=== PATIENT | male | born 1965 | race Caucasian/White ===

== ENCOUNTER 2019-04-08 08:42 | Outpatient (CLI) | payer MEDICARE, BC, SELFPAY ==
[2019-04-08 09:33] LABS: Basophils % 0.7 %; Eosinophils # 0.1 10^3/uL (0.0-0.8); Eosinophils % 1.1 %; Hematocrit 48.3 % (42.0-52.0); Hemoglobin 15.2 g/dL (11.7-16.6); Lymphocytes # 1.6 10^3/uL (0.8-4.8); Lymphocytes % 26.2 %; Mean Corpuscular HGB Conc 31.5 g/dL (30.0-36.0); Mean Corpuscular Hemoglobin 26.7 pg (28.0-34.0); Mean Corpuscular Volume 84.9 fL (80-94); Mean Platelet Volume 9.5 fL (7.4-10.4); Monocytes # 0.5 10^3/uL (0.2-0.9); Monocytes % 7.7 %; Neutrophils # 3.9 10^3/uL (1.8-7.7); Neutrophils % 64.1 %; Nucleated Red Blood Cells % 0 %; Platelet Count 227 10^3/cmm (130-400); Red Blood Count 5.69 10^6/uL (4.1-5.3); Red Cell Distribution Width 12.6 % (12.1-15.1); White Blood Count 6.1 10^3/uL (4.0-10.0)
== END 2019-04-08 08:43 | disposition home or self-care (01) ==
LOC: ONCMED 08:49
PROVIDERS: Family Provider Electrodiagnostic Medicine; Visit Provider Internal Medicine Medical Oncology
DX: D75.1 Secondary polycythemia (principal)
CPT/HCPCS: 36415; 36591; 85025; 99195; 99211

== ENCOUNTER 2019-05-09 08:27 | Outpatient (CLI) | payer MEDICARE, BC, SELFPAY ==
[2019-05-09 09:00] LABS: Basophils % 0.8 %; Eosinophils # 0.1 10^3/uL (0.0-0.8); Eosinophils % 1.3 %; Hematocrit 46.4 % (42.0-52.0); Hemoglobin 14.3 g/dL (11.7-16.6); Lymphocytes # 1.5 10^3/uL (0.8-4.8); Lymphocytes % 28.1 %; Mean Corpuscular HGB Conc 30.8 g/dL (30.0-36.0); Mean Corpuscular Hemoglobin 25.9 pg (28.0-34.0); Mean Corpuscular Volume 84.1 fL (80-94); Mean Platelet Volume 9.6 fL (7.4-10.4); Monocytes # 0.4 10^3/uL (0.2-0.9); Monocytes % 6.6 %; Neutrophils # 3.3 10^3/uL (1.8-7.7); Neutrophils % 62.3 %; Nucleated Red Blood Cells % 0 %; Platelet Count 233 10^3/cmm (130-400); Red Blood Count 5.52 10^6/uL (4.1-5.3); Red Cell Distribution Width 12.7 % (12.1-15.1); White Blood Count 5.3 10^3/uL (4.0-10.0)
== END 2019-05-09 08:28 | disposition home or self-care (01) ==
LOC: ONCMED 08:27
PROVIDERS: Family Provider Electrodiagnostic Medicine; PCP Electrodiagnostic Medicine; Visit Provider Internal Medicine Medical Oncology
DX: D75.1 Secondary polycythemia (principal)
CPT/HCPCS: 36415; 85025

== ENCOUNTER 2019-06-07 08:36 | Outpatient (CLI) | payer MEDICARE, BC, SELFPAY ==
[2019-06-07 09:19] LABS: Basophils % 0.3 %; Eosinophils # 0.1 10^3/uL (0.0-0.8); Eosinophils % 0.9 %; Hematocrit 49.7 % (42.0-52.0); Hemoglobin 15.2 g/dL (11.7-16.6); Lymphocytes # 1.6 10^3/uL (0.8-4.8); Lymphocytes % 25.7 %; Mean Corpuscular HGB Conc 30.6 g/dL (30.0-36.0); Mean Corpuscular Hemoglobin 24.9 pg (28.0-34.0); Mean Corpuscular Volume 81.5 fL (80-94); Mean Platelet Volume 9.8 fL (7.4-10.4); Monocytes # 0.4 10^3/uL (0.2-0.9); Monocytes % 6.4 %; Neutrophils # 4.2 10^3/uL (1.8-7.7); Neutrophils % 66.4 %; Nucleated Red Blood Cells % 0 %; Platelet Count 248 10^3/cmm (130-400); Red Cell Distribution Width 13.3 % (12.1-15.1); White Blood Count 6.4 10^3/uL (4.0-10.0)
== END 2019-06-07 08:37 | disposition home or self-care (01) ==
LOC: ONCMED 08:36
PROVIDERS: Family Provider Electrodiagnostic Medicine; PCP Electrodiagnostic Medicine; Visit Provider Internal Medicine Medical Oncology
DX: D75.1 Secondary polycythemia (principal)
CPT/HCPCS: 36415; 85025; 99195; 99211

== ENCOUNTER 2019-07-08 08:36 | Outpatient (CLI) | payer MEDICARE, BC, SELFPAY ==
[2019-07-08 09:02] LABS: Basophils % 0.5 %; Eosinophils # 0.1 10^3/uL (0.0-0.8); Eosinophils % 0.8 %; Hematocrit 47.3 % (42.0-52.0); Hemoglobin 14.5 g/dL (11.7-16.6); Lymphocytes # 1.4 10^3/uL (0.8-4.8); Lymphocytes % 23.4 %; Mean Corpuscular HGB Conc 30.7 g/dL (30.0-36.0); Mean Corpuscular Hemoglobin 25.5 pg (28.0-34.0); Mean Corpuscular Volume 83.3 fL (80-94); Mean Platelet Volume 9.3 fL (7.4-10.4); Monocytes # 0.3 10^3/uL (0.2-0.9); Neutrophils # 4.2 10^3/uL (1.8-7.7); Neutrophils % 70.1 %; Nucleated Red Blood Cells % 0 %; Platelet Count 229 10^3/cmm (130-400); Red Blood Count 5.68 10^6/uL (4.1-5.3); Red Cell Distribution Width 13.7 % (12.1-15.1)
== END 2019-07-08 08:37 | disposition home or self-care (01) ==
LOC: ONCMED 08:36
PROVIDERS: Family Provider Electrodiagnostic Medicine; PCP Electrodiagnostic Medicine; Visit Provider Internal Medicine Medical Oncology
DX: D75.1 Secondary polycythemia (principal)
CPT/HCPCS: 36415; 85025

== ENCOUNTER 2019-07-11 14:30 | Outpatient (CLI) | payer MEDICARE, BC, SELFPAY | END 2019-07-11 14:31 | disposition home or self-care (01) | LOC: ONCMED 14:30 | PROVIDERS: Family Provider Electrodiagnostic Medicine; PCP Electrodiagnostic Medicine; Visit Provider Internal Medicine Medical Oncology | DX: D75.1 Secondary polycythemia (principal) | CPT/HCPCS: 99195; 99211 ==

== ENCOUNTER 2019-08-08 08:21 | Outpatient (CLI) | payer MEDICARE, BC, SELFPAY ==
[2019-08-08 08:48] LABS: Basophils % 0.7 %; Eosinophils # 0.1 10^3/uL (0.0-0.8); Eosinophils % 2.4 %; Hemoglobin 13.5 g/dL (11.7-16.6); Lymphocytes # 1.7 10^3/uL (0.8-4.8); Lymphocytes % 28.7 %; Mean Corpuscular Hemoglobin 24.8 pg (28.0-34.0); Mean Corpuscular Volume 82.7 fL (80-94); Mean Platelet Volume 9.5 fL (7.4-10.4); Monocytes # 0.4 10^3/uL (0.2-0.9); Monocytes % 6.6 %; Neutrophils # 3.6 10^3/uL (1.8-7.7); Neutrophils % 61.4 %; Nucleated Red Blood Cells % 0 %; Platelet Count 226 10^3/cmm (130-400); Red Blood Count 5.44 10^6/uL (4.1-5.3); Red Cell Distribution Width 13.5 % (12.1-15.1); White Blood Count 5.9 10^3/uL (4.0-10.0)
== END 2019-08-08 08:22 | disposition home or self-care (01) ==
LOC: ONCMED 08:22
PROVIDERS: Family Provider Electrodiagnostic Medicine; PCP Electrodiagnostic Medicine; Visit Provider Internal Medicine Medical Oncology
DX: D75.1 Secondary polycythemia (principal)
CPT/HCPCS: 36415; 85025

== ENCOUNTER 2019-09-08 09:22 | Outpatient (CLI) | payer MEDICARE, BC, SELFPAY ==
[2019-09-08 09:56] LABS: Basophils % 0.7 %; Eosinophils % 0.5 %; Hematocrit 48.4 % (42.0-52.0); Hemoglobin 14.7 g/dL (11.7-16.6); Lymphocytes # 1.7 10^3/uL (0.8-4.8); Lymphocytes % 31.5 %; Mean Corpuscular HGB Conc 30.4 g/dL (30.0-36.0); Mean Corpuscular Hemoglobin 25.2 pg (28.0-34.0); Mean Corpuscular Volume 82.9 fL (80-94); Mean Platelet Volume 9.6 fL (7.4-10.4); Monocytes # 0.4 10^3/uL (0.2-0.9); Monocytes % 7.1 %; Neutrophils # 3.3 10^3/uL (1.8-7.7); Neutrophils % 59.8 %; Nucleated Red Blood Cells % 0 %; Platelet Count 266 10^3/cmm (130-400); Red Blood Count 5.84 10^6/uL (4.1-5.3); Red Cell Distribution Width 13.9 % (12.1-15.1); White Blood Count 5.5 10^3/uL (4.0-10.0)
[2019-09-08 10:11] LABS: Alanine Aminotransferase 19 U/L (0-41); Albumin Level 4.5 g/dL (3.5-5.2); Alkaline Phosphatase 87 IU/L (40-130); Anion Gap 13.2 (5-19); Aspartate Amino Transferase 19 U/L (0-40); Blood Urea Nitrogen 14 mg/dL (6-20); Calcium 9.2 mg/dL (8.5-10.5); Carbon Dioxide 25 mmol/L (22-29); Chloride 106 mmol/L (98-107); Globulin 2.2 g/dL (1.3-4.6); Glomerular Filtration Rate 87.9 mL/min (90-130); Glucose 111 mg/dL (65-115); Osmolality Calculated 287 mOsm/kg (285-295); Potassium 4.2 mmol/L (3.5-5.1); Sodium 140 mmol/L (136-145); Total Bilirubin 0.3 mg/dL (0.15-1.2); Total Protein 6.7 g/dL (6.6-8.7)
[2019-09-08 12:59] LABS: 25 Hydroxy Vitamin D 69 ng/mL (30-100)
[2019-09-08 14:32] LABS: Phosphorus 2.3 mg/dL (2.5-4.5)
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
== END 2019-09-08 09:23 | disposition home or self-care (01) ==
LOC: ONCMED 09:25
PROVIDERS: PCP Electrodiagnostic Medicine; Visit Provider Internal Medicine Medical Oncology
DX: D45 Polycythemia vera (principal); E83.32 Hereditary vitamin D-dependent rickets (type 1) (type 2); D51.9 Vitamin B12 deficiency anemia, unspecified; E51.9 Thiamine deficiency, unspecified; E78.5 Hyperlipidemia, unspecified; K90.9 Intestinal malabsorption, unspecified; F07.81 Postconcussional syndrome; G62.2 Polyneuropathy due to other toxic agents; G89.4 Chronic pain syndrome; G47.31 Primary central sleep apnea; R00.0 Tachycardia, unspecified; E23.7 Disorder of pituitary gland, unspecified; E29.1 Testicular hypofunction; R55 Syncope and collapse; N40.0 Benign prostatic hyperplasia without lower urinary tract symptoms; N20.0 Calculus of kidney; F32.9 Major depressive disorder, single episode, unspecified
CPT/HCPCS: 36415; 80053; 82306; 84100; 85025; 99195; 99214

== ENCOUNTER 2019-09-20 15:11 | Outpatient (CLI) | payer MEDICARE, BC, SELFPAY ==
--- NOTE | 2019-09-20 15:27 | XR_ITS ---
NOTE: Report was unsigned for reason: Order was edited. Original Signature date and time was: 09/20/19 1604 WS: [id number] Bilateral hips, AP and frog leg views, 09/20/2019 Clinical Data: BILATERAL PRIMARY OSTEOARTHRITIS OF HIP Comparison: None. Findings: Right hip: No fractures or dislocations are seen. There is slight sclerosis of the lateral acetabulum. A small acetabular lip is noted. No narrowing is noted. There is no cyst formation or erosion. The adjacent right SI joint and pubic symphysis are unremarkable. The soft tissues are normal. Left hip: No fractures or dislocations are seen. The joint space is normal without narrowing, erosion or cyst formation. The adjacent left SI joint and pubic symphysis are normal. There is minimal cyst formation at the left acetabular lip. Soft tissues are unremarkable. MTDD XR/XR hip BI 2V wo/w pel [id number] Impression: 1. Mild osteoarthritis of the right hip joint. 2. Mild osteoarthritis of the left hip..
== END 2019-09-20 15:12 | disposition home or self-care (01) ==
PROVIDERS: Family Provider Electrodiagnostic Medicine; PCP Electrodiagnostic Medicine; Visit Provider Physician Assistant
DX: M16.0 Bilateral primary osteoarthritis of hip (principal)
CPT/HCPCS: 73521; 73522

== ENCOUNTER 2019-10-10 08:43 | Outpatient (CLI) | payer MEDICARE, BC, SELFPAY ==
[2019-10-10 09:08] LABS: Basophils % 0.5 %; Eosinophils % 0.2 %; Hematocrit 47.7 % (42.0-52.0); Hemoglobin 14.5 g/dL (11.7-16.6); Lymphocytes # 1.5 10^3/uL (0.8-4.8); Lymphocytes % 24.5 %; Mean Corpuscular HGB Conc 30.4 g/dL (30.0-36.0); Mean Corpuscular Hemoglobin 25.5 pg (28.0-34.0); Mean Platelet Volume 9.5 fL (7.4-10.4); Monocytes # 0.4 10^3/uL (0.2-0.9); Monocytes % 7.3 %; Neutrophils # 4.1 10^3/uL (1.8-7.7); Neutrophils % 67.2 %; Nucleated Red Blood Cells % 0 %; Platelet Count 230 10^3/cmm (130-400); Red Blood Count 5.68 10^6/uL (4.1-5.3); Red Cell Distribution Width 13.9 % (12.1-15.1)
== END 2019-10-10 08:44 | disposition home or self-care (01) ==
LOC: ONCMED 08:46
PROVIDERS: PCP Electrodiagnostic Medicine; Visit Provider Internal Medicine Medical Oncology
DX: D45 Polycythemia vera (principal); D51.9 Vitamin B12 deficiency anemia, unspecified; E55.9 Vitamin D deficiency, unspecified; N40.0 Benign prostatic hyperplasia without lower urinary tract symptoms; G47.31 Primary central sleep apnea; F09 Unspecified mental disorder due to known physiological condition; F32.9 Major depressive disorder, single episode, unspecified; G04.90 Encephalitis and encephalomyelitis, unspecified; E78.5 Hyperlipidemia, unspecified; E23.0 Hypopituitarism; R00.0 Tachycardia, unspecified; K90.9 Intestinal malabsorption, unspecified
CPT/HCPCS: 36415; 85025; 99195

== ENCOUNTER 2019-11-10 08:32 | Outpatient (CLI) | payer MEDICARE, BC, SELFPAY ==
[2019-11-10 09:34] LABS: Basophils % 0.7 %; Eosinophils % 0.7 %; Hematocrit 46.5 % (42.0-52.0); Hemoglobin 13.8 g/dL (11.7-16.6); Lymphocytes # 1.6 10^3/uL (0.8-4.8); Lymphocytes % 27.2 %; Mean Corpuscular HGB Conc 29.7 g/dL (30.0-36.0); Mean Corpuscular Hemoglobin 24.9 pg (28.0-34.0); Mean Corpuscular Volume 83.8 fL (80-94); Mean Platelet Volume 9.6 fL (7.4-10.4); Monocytes # 0.3 10^3/uL (0.2-0.9); Monocytes % 5.6 %; Neutrophils # 3.95 10^3/uL (1.8-7.7); Neutrophils % 65.3 %; Nucleated Red Blood Cells % 0 %; Platelet Count 253 10^3/cmm (130-400); Red Blood Count 5.55 10^6/uL (4.1-5.3); Red Cell Distribution Width 13.7 % (12.1-15.1)
== END 2019-11-10 08:33 | disposition home or self-care (01) ==
LOC: ONCMED 08:35
PROVIDERS: PCP Electrodiagnostic Medicine; Visit Provider Internal Medicine Medical Oncology
DX: E83.119 Hemochromatosis, unspecified (principal)
CPT/HCPCS: 85025; 99195

== ENCOUNTER 2019-12-09 06:15 | Outpatient (CLI) | payer MEDICARE, BC, SELFPAY ==
[2019-12-09 09:12] LABS: Basophils % 0.7 %; Eosinophils # 0.1 10^3/uL (0.0-0.8); Eosinophils % 1.3 %; Hematocrit 49.2 % (42.0-52.0); Hemoglobin 14.6 g/dL (11.7-16.6); Lymphocytes # 1.4 10^3/uL (0.8-4.8); Lymphocytes % 26.4 %; Mean Corpuscular HGB Conc 29.7 g/dL (30.0-36.0); Mean Corpuscular Hemoglobin 24.6 pg (28.0-34.0); Mean Corpuscular Volume 82.8 fL (80-94); Mean Platelet Volume 9.8 fL (7.4-10.4); Monocytes # 0.4 10^3/uL (0.2-0.9); Monocytes % 7.8 %; Neutrophils # 3.44 10^3/uL (1.8-7.7); Neutrophils % 63.6 %; Nucleated Red Blood Cells % 0 %; Platelet Count 230 10^3/cmm (130-400); Red Blood Count 5.94 10^6/uL (4.1-5.3); Red Cell Distribution Width 13.8 % (12.1-15.1); White Blood Count 5.4 10^3/uL (4.0-10.0)
== END 2019-12-09 06:16 | disposition home or self-care (01) ==
LOC: ONCMED 06:18
PROVIDERS: PCP Electrodiagnostic Medicine; Visit Provider Internal Medicine Medical Oncology
DX: D75.1 Secondary polycythemia (principal); E55.9 Vitamin D deficiency, unspecified
CPT/HCPCS: 36415; 85025; 99195

== ENCOUNTER 2020-01-09 08:31 | Outpatient (CLI) | payer MEDICARE, BC, SELFPAY ==
[2020-01-09 09:13] LABS: Basophils % 0.6 %; Eosinophils # 0.1 10^3/uL (0.0-0.8); Eosinophils % 1.2 %; Hemoglobin 15.6 g/dL (11.7-16.6); Lymphocytes # 1.6 10^3/uL (0.8-4.8); Lymphocytes % 24.2 %; Mean Corpuscular Hemoglobin 25.4 pg (28.0-34.0); Mean Corpuscular Volume 84.7 fL (80-94); Mean Platelet Volume 9.7 fL (7.4-10.4); Monocytes # 0.5 10^3/uL (0.2-0.9); Monocytes % 7.6 %; Neutrophils # 4.41 10^3/uL (1.8-7.7); Nucleated Red Blood Cells % 0 %; Platelet Count 232 10^3/cmm (130-400); Red Blood Count 6.14 10^6/uL (4.1-5.3); Red Cell Distribution Width 14.6 % (12.1-15.1); White Blood Count 6.7 10^3/uL (4.0-10.0)
== END 2020-01-09 08:32 | disposition home or self-care (01) ==
LOC: ONCMED 08:33
PROVIDERS: PCP Electrodiagnostic Medicine; Visit Provider Internal Medicine Medical Oncology
DX: D75.1 Secondary polycythemia (principal)
CPT/HCPCS: 36415; 85025; 99195

== ENCOUNTER 2020-02-09 06:01 | Outpatient (CLI) | payer MEDICARE, BC, SELFPAY ==
[2020-02-09 09:15] LABS: Basophils % 0.7 %; Eosinophils % 0.7 %; Hematocrit 49.7 % (42.0-52.0); Hemoglobin 14.6 g/dL (11.7-16.6); Lymphocytes # 1.6 10^3/uL (0.8-4.8); Lymphocytes % 27.4 %; Mean Corpuscular HGB Conc 29.4 g/dL (30.0-36.0); Mean Corpuscular Hemoglobin 24.8 pg (28.0-34.0); Mean Corpuscular Volume 84.5 fL (80-94); Mean Platelet Volume 9.4 fL (7.4-10.4); Monocytes # 0.3 10^3/uL (0.2-0.9); Monocytes % 5.6 %; Neutrophils # 3.83 10^3/uL (1.8-7.7); Neutrophils % 65.3 %; Nucleated Red Blood Cells % 0 %; Platelet Count 312 10^3/cmm (130-400); Red Blood Count 5.88 10^6/uL (4.1-5.3); Red Cell Distribution Width 13.4 % (12.1-15.1); White Blood Count 5.9 10^3/uL (4.0-10.0)
== END 2020-02-09 06:02 | disposition home or self-care (01) ==
LOC: ONCMED 06:04
PROVIDERS: PCP Electrodiagnostic Medicine; Visit Provider Internal Medicine Medical Oncology
DX: D75.1 Secondary polycythemia (principal); E83.119 Hemochromatosis, unspecified; E55.9 Vitamin D deficiency, unspecified
CPT/HCPCS: 36415; 85025; 99195

== ENCOUNTER 2020-03-12 08:54 | Outpatient (CLI) | payer MEDICARE, BC, SELFPAY ==
[2020-03-12 09:43] LABS: Basophils # 0.1 10^3/uL (0.0-0.1); Basophils % 0.6 %; Eosinophils # 0.3 10^3/uL (0.0-0.8); Hematocrit 46.5 % (42.0-52.0); Lymphocytes # 1.9 10^3/uL (0.8-4.8); Mean Corpuscular HGB Conc 30.1 g/dL (30.0-36.0); Mean Corpuscular Hemoglobin 24.5 pg (28.0-34.0); Mean Corpuscular Volume 81.4 fL (80-94); Mean Platelet Volume 9.6 fL (7.4-10.4); Monocytes # 0.6 10^3/uL (0.2-0.9); Monocytes % 6.3 %; Neutrophils # 6.66 10^3/uL (1.8-7.7); Neutrophils % 69.7 %; Nucleated Red Blood Cells % 0 %; Platelet Count 274 10^3/cmm (130-400); Red Blood Count 5.71 10^6/uL (4.1-5.3); Red Cell Distribution Width 13.9 % (12.1-15.1); White Blood Count 9.6 10^3/uL (4.0-10.0)
[2020-03-12 10:24] LABS: 25 Hydroxy Vitamin D 62 ng/mL (30-100); Alanine Aminotransferase 14 U/L (0-41); Albumin Level 3.9 g/dL (3.5-5.2); Alkaline Phosphatase 112 IU/L (40-130); Aspartate Amino Transferase 13 U/L (0-40); Blood Urea Nitrogen 14 mg/dL (6-20); Calcium 9.3 mg/dL (8.5-10.5); Carbon Dioxide 26 mmol/L (22-29); Chloride 101 mmol/L (98-107); Glomerular Filtration Rate 87.9 mL/min (90-130); Glucose 145 mg/dL (65-115); Osmolality Calculated 289 mOsm/kg (285-295); Sodium 138 mmol/L (136-145); Total Bilirubin 0.2 mg/dL (0.15-1.2); Total Protein 6.9 g/dL (6.6-8.7)
[2020-03-12 10:30] LABS: Anion Gap 14.7 (5-19); Potassium 3.7 mmol/L (3.5-5.1)
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
== END 2020-03-12 08:55 | disposition home or self-care (01) ==
LOC: ONCMED 08:56
PROVIDERS: PCP Electrodiagnostic Medicine; Visit Provider Internal Medicine Medical Oncology
DX: D75.1 Secondary polycythemia (principal); F09 Unspecified mental disorder due to known physiological condition; E78.5 Hyperlipidemia, unspecified; N40.0 Benign prostatic hyperplasia without lower urinary tract symptoms; F32.9 Major depressive disorder, single episode, unspecified; G47.31 Primary central sleep apnea; E29.1 Testicular hypofunction; E53.8 Deficiency of other specified B group vitamins; E55.9 Vitamin D deficiency, unspecified; E51.9 Thiamine deficiency, unspecified
CPT/HCPCS: 36415; 80053; 82306; 85025; 99214

== ENCOUNTER 2020-04-12 08:36 | Outpatient (CLI) | payer MEDICARE, BC, SELFPAY ==
[2020-04-12 09:10] LABS: Basophils % 0.6 %; Eosinophils # 0.1 10^3/uL (0.0-0.8); Eosinophils % 1.6 %; Hematocrit 46.5 % (42.0-52.0); Hemoglobin 13.6 g/dL (11.7-16.6); Lymphocytes # 1.8 10^3/uL (0.8-4.8); Lymphocytes % 28.8 %; Mean Corpuscular HGB Conc 29.2 g/dL (30.0-36.0); Mean Corpuscular Hemoglobin 23.9 pg (28.0-34.0); Mean Corpuscular Volume 81.7 fL (80-94); Mean Platelet Volume 9.2 fL (7.4-10.4); Monocytes # 0.5 10^3/uL (0.2-0.9); Monocytes % 8.6 %; Neutrophils # 3.79 10^3/uL (1.8-7.7); Neutrophils % 60.2 %; Nucleated Red Blood Cells % 0 %; Platelet Count 255 10^3/cmm (130-400); Red Blood Count 5.69 10^6/uL (4.1-5.3); Red Cell Distribution Width 13.7 % (12.1-15.1); White Blood Count 6.3 10^3/uL (4.0-10.0)
== END 2020-04-12 08:37 | disposition home or self-care (01) ==
LOC: ONCMED 08:39
PROVIDERS: PCP Electrodiagnostic Medicine; Visit Provider Internal Medicine Medical Oncology
DX: D75.1 Secondary polycythemia (principal)
CPT/HCPCS: 36415; 85025; 99195

== ENCOUNTER 2020-05-14 08:27 | Outpatient (CLI) | payer MEDICARE, BC, SELFPAY ==
[2020-05-14 09:12] LABS: Basophils # 0.1 10^3/uL (0.0-0.1); Basophils % 0.7 %; Eosinophils # 0.1 10^3/uL (0.0-0.8); Eosinophils % 1.3 %; Hematocrit 47.4 % (42.0-52.0); Hemoglobin 13.9 g/dL (11.7-16.6); Lymphocytes # 1.8 10^3/uL (0.8-4.8); Lymphocytes % 26.2 %; Mean Corpuscular HGB Conc 29.3 g/dL (30.0-36.0); Mean Corpuscular Hemoglobin 24.1 pg (28.0-34.0); Mean Corpuscular Volume 82.3 fL (80-94); Mean Platelet Volume 9.7 fL (7.4-10.4); Monocytes # 0.5 10^3/uL (0.2-0.9); Monocytes % 6.4 %; Neutrophils # 4.56 10^3/uL (1.8-7.7); Neutrophils % 65.1 %; Nucleated Red Blood Cells % 0 %; Platelet Count 256 10^3/cmm (130-400); Red Blood Count 5.76 10^6/uL (4.1-5.3); Red Cell Distribution Width 14.1 % (12.1-15.1)
== END 2020-05-14 08:28 | disposition home or self-care (01) ==
PROVIDERS: PCP Electrodiagnostic Medicine; Visit Provider Internal Medicine Medical Oncology
DX: D75.1 Secondary polycythemia (principal)
CPT/HCPCS: 36415; 85025; 99195

== ENCOUNTER 2020-06-11 06:05 | Outpatient (CLI) | payer MEDICARE, BC, SELFPAY ==
[2020-06-11 09:20] LABS: Basophils # 0.1 10^3/uL (0.0-0.1); Basophils % 0.9 %; Eosinophils # 0.1 10^3/uL (0.0-0.8); Hematocrit 45.3 % (42.0-52.0); Hemoglobin 13.3 g/dL (11.7-16.6); Lymphocytes # 1.6 10^3/uL (0.8-4.8); Lymphocytes % 28.5 %; Mean Corpuscular HGB Conc 29.4 g/dL (30.0-36.0); Mean Corpuscular Hemoglobin 23.7 pg (28.0-34.0); Mean Corpuscular Volume 80.6 fL (80-94); Mean Platelet Volume 9.5 fL (7.4-10.4); Monocytes # 0.4 10^3/uL (0.2-0.9); Monocytes % 7.5 %; Neutrophils # 3.56 10^3/uL (1.8-7.7); Neutrophils % 61.9 %; Nucleated Red Blood Cells % 0 %; Platelet Count 271 10^3/cmm (130-400); Red Blood Count 5.62 10^6/uL (4.1-5.3); Red Cell Distribution Width 14.2 % (12.1-15.1); White Blood Count 5.8 10^3/uL (4.0-10.0)
== END 2020-06-11 06:06 | disposition home or self-care (01) ==
PROVIDERS: PCP Electrodiagnostic Medicine; Visit Provider Internal Medicine Medical Oncology
DX: D75.1 Secondary polycythemia (principal)
CPT/HCPCS: 85025; 99195

== ENCOUNTER 2020-07-09 08:20 | Outpatient (CLI) | payer MEDICARE, BC, SELFPAY ==
[2020-07-09 09:20] LABS: Basophils % 0.3 %; Eosinophils % 0.1 %; Hematocrit 44.5 % (42.0-52.0); Hemoglobin 12.9 g/dL (11.7-16.6); Lymphocytes # 1.7 10^3/uL (0.8-4.8); Lymphocytes % 21.7 %; Mean Corpuscular Hemoglobin 23.2 pg (28.0-34.0); Mean Corpuscular Volume 80.2 fL (80-94); Mean Platelet Volume 10.2 fL (7.4-10.4); Monocytes # 0.6 10^3/uL (0.2-0.9); Monocytes % 8.1 %; Neutrophils # 5.51 10^3/uL (1.8-7.7); Neutrophils % 69.4 %; Nucleated Red Blood Cells % 0 %; Platelet Count 283 10^3/cmm (130-400); Red Blood Count 5.55 10^6/uL (4.1-5.3); Red Cell Distribution Width 14.3 % (12.1-15.1); White Blood Count 7.9 10^3/uL (4.0-10.0)
== END 2020-07-09 08:21 | disposition home or self-care (01) ==
PROVIDERS: PCP Electrodiagnostic Medicine; Visit Provider Internal Medicine Medical Oncology
DX: D75.1 Secondary polycythemia (principal)
CPT/HCPCS: 36415; 85025

== ENCOUNTER 2020-08-06 08:30 | Outpatient (CLI) | payer MEDICARE, BC, SELFPAY ==
[2020-08-06 09:05] LABS: Basophils % 0.6 %; Eosinophils # 0.1 10^3/uL (0.0-0.8); Hematocrit 49.2 % (42.0-52.0); Hemoglobin 13.9 g/dL (11.7-16.6); Lymphocytes # 1.7 10^3/uL (0.8-4.8); Lymphocytes % 27.5 %; Mean Corpuscular HGB Conc 28.3 g/dL (30.0-36.0); Mean Corpuscular Hemoglobin 23.2 pg (28.0-34.0); Monocytes # 0.5 10^3/uL (0.2-0.9); Monocytes % 8.2 %; Neutrophils # 3.87 10^3/uL (1.8-7.7); Neutrophils % 62.4 %; Nucleated Red Blood Cells % 0 %; Platelet Count 258 10^3/cmm (130-400); Red Cell Distribution Width 15.1 % (12.1-15.1); White Blood Count 6.2 10^3/uL (4.0-10.0)
== END 2020-08-06 08:31 | disposition home or self-care (01) ==
PROVIDERS: PCP Electrodiagnostic Medicine; Visit Provider Internal Medicine Medical Oncology
DX: D45 Polycythemia vera (principal)
CPT/HCPCS: 36415; 85025; 99195

== ENCOUNTER 2020-09-10 10:58 | Outpatient (CLI) | payer MEDICARE, BC, SELFPAY ==
[2020-09-10 11:37] LABS: Basophils % 0.5 %; Eosinophils # 0.1 10^3/uL (0.0-0.8); Eosinophils % 0.9 %; Hematocrit 49.2 % (42.0-52.0); Hemoglobin 14.5 g/dL (11.7-16.6); Lymphocytes # 1.6 10^3/uL (0.8-4.8); Lymphocytes % 25.9 %; Mean Corpuscular HGB Conc 29.5 g/dL (30.0-36.0); Mean Corpuscular Hemoglobin 23.6 pg (28.0-34.0); Mean Platelet Volume 9.1 fL (7.4-10.4); Monocytes # 0.4 10^3/uL (0.2-0.9); Monocytes % 6.6 %; Neutrophils # 4.17 10^3/uL (1.8-7.7); Neutrophils % 65.8 %; Nucleated Red Blood Cells % 0 %; Platelet Count 242 10^3/cmm (130-400); Red Blood Count 6.15 10^6/uL (4.1-5.3); Red Cell Distribution Width 15.3 % (12.1-15.1); White Blood Count 6.3 10^3/uL (4.0-10.0)
[2020-09-10 11:54] LABS: Alanine Aminotransferase 15 U/L (0-41); Albumin Level 3.9 g/dL (3.5-5.2); Alkaline Phosphatase 99 IU/L (40-130); Blood Urea Nitrogen 11 mg/dL (6-20); Calcium 8.8 mg/dL (8.5-10.5); Carbon Dioxide 25 mmol/L (22-29); Chloride 103 mmol/L (98-107); Glomerular Filtration Rate 100.4 mL/min (90-130); Glucose 129 mg/dL (65-115); Osmolality Calculated 285 mOsm/kg (285-295); Sodium 137 mmol/L (136-145); Total Bilirubin 0.4 mg/dL (0.15-1.2); Total Protein 6.9 g/dL (6.6-8.7)
[2020-09-10 11:55] LABS: Anion Gap 13.4 (5-19); Aspartate Amino Transferase 20 U/L (0-40); Potassium 4.4 mmol/L (3.5-5.1)
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
== END 2020-09-10 10:59 | disposition home or self-care (01) ==
LOC: ONCMED 11:00
PROVIDERS: PCP Electrodiagnostic Medicine; Visit Provider Internal Medicine Medical Oncology
DX: D75.1 Secondary polycythemia (principal); T60 Toxic effect of pesticides; G93.1 Anoxic brain damage, not elsewhere classified; F09 Unspecified mental disorder due to known physiological condition; G62.2 Polyneuropathy due to other toxic agents; G89.29 Other chronic pain; G58.8 Other specified mononeuropathies; G47.31 Primary central sleep apnea; R00.0 Tachycardia, unspecified; R55 Syncope and collapse; E53.8 Deficiency of other specified B group vitamins; E55.9 Vitamin D deficiency, unspecified; E51.9 Thiamine deficiency, unspecified; E78.5 Hyperlipidemia, unspecified; N40.0 Benign prostatic hyperplasia without lower urinary tract symptoms; Z87.442 Personal history of urinary calculi; F32.9 Major depressive disorder, single episode, unspecified; Z79.899 Other long term (current) drug therapy
CPT/HCPCS: 36415; 80053; 85025; 99195; 99214

== ENCOUNTER 2020-10-09 12:59 | Outpatient (CLI) | payer MEDICARE, BC, SELFPAY ==
[2020-10-09 13:35] LABS: Basophils % 0.6 %; Eosinophils % 0.6 %; Hematocrit 49.5 % (42.0-52.0); Hemoglobin 14.9 g/dL (11.7-16.6); Lymphocytes % 30.1 %; Mean Corpuscular HGB Conc 30.1 g/dL (30.0-36.0); Mean Corpuscular Volume 79.7 fL (80-94); Mean Platelet Volume 9.6 fL (7.4-10.4); Monocytes # 0.6 10^3/uL (0.2-0.9); Monocytes % 8.6 %; Neutrophils # 4.01 10^3/uL (1.8-7.7); Neutrophils % 59.7 %; Nucleated Red Blood Cells % 0 %; Platelet Count 309 10^3/cmm (130-400); Red Blood Count 6.21 10^6/uL (4.1-5.3); Red Cell Distribution Width 14.9 % (12.1-15.1); White Blood Count 6.7 10^3/uL (4.0-10.0)
== END 2020-10-09 13:00 | disposition home or self-care (01) ==
LOC: ONCMED 13:02
PROVIDERS: PCP Electrodiagnostic Medicine; Visit Provider Internal Medicine Medical Oncology
DX: D75.1 Secondary polycythemia (principal)
CPT/HCPCS: 36415; 85025; 99195

== ENCOUNTER 2020-11-05 12:57 | Outpatient (CLI) | payer MEDICARE, BC, SELFPAY ==
[2020-11-05 13:38] LABS: Basophils % 0.6 %; Eosinophils # 0.1 10^3/uL (0.0-0.8); Eosinophils % 0.8 %; Hematocrit 46.7 % (42.0-52.0); Hemoglobin 14.1 g/dL (11.7-16.6); Lymphocytes % 30.8 %; Mean Corpuscular HGB Conc 30.2 g/dL (30.0-36.0); Mean Corpuscular Hemoglobin 24.6 pg (28.0-34.0); Mean Corpuscular Volume 81.4 fL (80-94); Mean Platelet Volume 9.8 fL (7.4-10.4); Monocytes # 0.6 10^3/uL (0.2-0.9); Monocytes % 9.4 %; Neutrophils # 3.73 10^3/uL (1.8-7.7); Neutrophils % 58.2 %; Nucleated Red Blood Cells % 0 %; Platelet Count 250 10^3/cmm (130-400); Red Blood Count 5.74 10^6/uL (4.1-5.3); Red Cell Distribution Width 14.5 % (12.1-15.1); White Blood Count 6.4 10^3/uL (4.0-10.0)
== END 2020-11-05 12:58 | disposition home or self-care (01) ==
LOC: ONCMED 13:02
PROVIDERS: PCP Electrodiagnostic Medicine; Visit Provider Internal Medicine Medical Oncology
DX: D75.1 Secondary polycythemia (principal)
CPT/HCPCS: 36415; 85025; 99195

== ENCOUNTER 2020-12-03 12:53 | Outpatient (CLI) | payer MEDICARE, BC, SELFPAY ==
[2020-12-03 13:45] LABS: Basophils # 0.1 10^3/uL (0.0-0.1); Basophils % 0.7 %; Eosinophils # 0.1 10^3/uL (0.0-0.8); Eosinophils % 0.9 %; Hematocrit 48.3 % (42.0-52.0); Hemoglobin 14.4 g/dL (11.7-16.6); Lymphocytes # 2.1 10^3/uL (0.8-4.8); Lymphocytes % 29.6 %; Mean Corpuscular HGB Conc 29.8 g/dL (30.0-36.0); Mean Corpuscular Hemoglobin 24.4 pg (28.0-34.0); Mean Platelet Volume 9.8 fL (7.4-10.4); Monocytes # 0.6 10^3/uL (0.2-0.9); Monocytes % 8.8 %; Neutrophils # 4.17 10^3/uL (1.8-7.7); Neutrophils % 59.7 %; Nucleated Red Blood Cells % 0 %; Platelet Count 274 10^3/cmm (130-400); Red Blood Count 5.89 10^6/uL (4.1-5.3); Red Cell Distribution Width 14.1 % (12.1-15.1)
== END 2020-12-03 12:54 | disposition home or self-care (01) ==
LOC: ONCMED 12:56
PROVIDERS: PCP Electrodiagnostic Medicine; Visit Provider Internal Medicine Medical Oncology
DX: D75.1 Secondary polycythemia (principal)
CPT/HCPCS: 36415; 85025; 99195

== ENCOUNTER 2020-12-31 12:57 | Outpatient (CLI) | payer MEDICARE, BC, SELFPAY ==
[2020-12-31 14:19] LABS: Basophils % 0.5 %; Eosinophils # 0.1 10^3/uL (0.0-0.8); Eosinophils % 2.6 %; Hematocrit 47.3 % (42.0-52.0); Hemoglobin 13.9 g/dL (11.7-16.6); Lymphocytes # 1.7 10^3/uL (0.8-4.8); Lymphocytes % 42.8 %; Mean Corpuscular HGB Conc 29.4 g/dL (30.0-36.0); Mean Corpuscular Hemoglobin 24.3 pg (28.0-34.0); Mean Corpuscular Volume 82.5 fl (80-94); Mean Platelet Volume 9.8 fL (7.4-10.4); Monocytes # 0.3 10^3/uL (0.2-0.9); Monocytes % 8.2 %; Neutrophils # 1.78 10^3/uL (1.8-7.7); Neutrophils % 45.9 %; Nucleated Red Blood Cells % 0 %; Platelet Count 213 10^3/cmm (130-400); Red Blood Count 5.73 10^6/uL (4.1-5.3); Red Cell Distribution Width 13.6 % (12.1-15.1); White Blood Count 3.9 10^3/uL (4.0-10.0)
[2020-12-31 14:47] LABS: Slide Review Slide Review Perform
== END 2020-12-31 12:58 | disposition home or self-care (01) ==
LOC: ONCMED 12:59
PROVIDERS: PCP Electrodiagnostic Medicine; Visit Provider Internal Medicine Medical Oncology
DX: D75.1 Secondary polycythemia (principal)
CPT/HCPCS: 36415; 85025; 99195

== ENCOUNTER 2021-01-28 12:50 | Outpatient (CLI) | payer MEDICARE, BC, SELFPAY ==
[2021-01-28 14:00] LABS: Basophils % 0.5 %; Eosinophils # 0.1 10^3/uL (0.0-0.8); Eosinophils % 0.8 %; Hematocrit 49.2 % (42.0-52.0); Hemoglobin 14.7 g/dL (11.7-16.6); Lymphocytes % 25.7 %; Mean Corpuscular HGB Conc 29.9 g/dL (30.0-36.0); Mean Corpuscular Hemoglobin 25.2 pg (28.0-34.0); Mean Corpuscular Volume 84.2 fl (80-94); Monocytes # 0.8 10^3/uL (0.2-0.9); Monocytes % 9.8 %; Neutrophils # 4.86 10^3/uL (1.8-7.7); Neutrophils % 62.9 %; Nucleated Red Blood Cells % 0 %; Platelet Count 244 10^3/cmm (130-400); Red Blood Count 5.84 10^6/uL (4.1-5.3); Red Cell Distribution Width 14.6 % (12.1-15.1); White Blood Count 7.7 10^3/uL (4.0-10.0)
== END 2021-01-28 12:51 | disposition home or self-care (01) ==
PROVIDERS: PCP Electrodiagnostic Medicine; Visit Provider Internal Medicine Medical Oncology
DX: D75.1 Secondary polycythemia (principal)
CPT/HCPCS: 36415; 85025; 99195

== ENCOUNTER 2021-02-25 12:50 | Outpatient (CLI) | payer MEDICARE, BC, SELFPAY ==
[2021-02-25 13:43] LABS: Basophils % 0.6 %; Eosinophils % 0.6 %; Hematocrit 47.6 % (42.0-52.0); Hemoglobin 14.7 g/dL (11.7-16.6); Lymphocytes % 28.4 %; Mean Corpuscular HGB Conc 30.9 g/dL (30.0-36.0); Mean Corpuscular Hemoglobin 25.3 pg (28.0-34.0); Mean Corpuscular Volume 81.9 fl (80-94); Mean Platelet Volume 9.7 fL (7.4-10.4); Monocytes # 0.5 10^3/uL (0.2-0.9); Monocytes % 7.5 %; Neutrophils # 4.37 10^3/uL (1.8-7.7); Neutrophils % 62.6 %; Nucleated Red Blood Cells % 0 %; Platelet Count 281 10^3/cmm (130-400); Red Blood Count 5.81 10^6/uL (4.1-5.3); Red Cell Distribution Width 14.2 % (12.1-15.1)
== END 2021-02-25 12:51 | disposition home or self-care (01) ==
LOC: ONCMED 12:54
PROVIDERS: PCP Electrodiagnostic Medicine; Visit Provider Internal Medicine Medical Oncology
DX: D75.1 Secondary polycythemia (principal)
CPT/HCPCS: 36415; 85025; 99195

== ENCOUNTER 2021-03-26 10:50 | Outpatient (CLI) | payer MEDICARE, BC, SELFPAY ==
[2021-03-26 11:31] LABS: Basophils # 0.1 10^3/uL (0.0-0.1); Basophils % 0.8 %; Eosinophils # 0.1 10^3/uL (0.0-0.8); Eosinophils % 1.5 %; Hematocrit 45.4 % (42.0-52.0); Hemoglobin 13.7 g/dL (11.7-16.6); Lymphocytes # 1.8 10^3/uL (0.8-4.8); Lymphocytes % 27.3 %; Mean Corpuscular HGB Conc 30.2 g/dL (30.0-36.0); Mean Corpuscular Hemoglobin 24.5 pg (28.0-34.0); Mean Corpuscular Volume 81.1 fl (80-94); Mean Platelet Volume 9.2 fL (7.4-10.4); Monocytes # 0.5 10^3/uL (0.2-0.9); Monocytes % 7.9 %; Neutrophils # 4.09 10^3/uL (1.8-7.7); Neutrophils % 62.3 %; Nucleated Red Blood Cells % 0 %; Platelet Count 246 10^3/cmm (130-400); Red Cell Distribution Width 13.6 % (12.1-15.1); White Blood Count 6.6 10^3/uL (4.0-10.0)
[2021-03-26 11:51] LABS: Alanine Aminotransferase 14 U/L (0-41); Albumin Level 4.2 g/dL (3.5-5.2); Alkaline Phosphatase 94 IU/L (40-130); Aspartate Amino Transferase 14 U/L (0-40); Blood Urea Nitrogen 9 mg/dL (6-20); Calcium 8.7 mg/dL (8.5-10.5); Carbon Dioxide 24 mmol/L (22-29); Chloride 101 mmol/L (98-107); Globulin 2.4 g/dL (1.3-4.6); Glomerular Filtration Rate 100.4 mL/min (90-130); Glucose 115 mg/dL (65-115); Osmolality Calculated 286 mOsm/kg (285-295); Sodium 138 mmol/L (136-145); Total Bilirubin 0.3 mg/dL (0.15-1.2); Total Protein 6.6 g/dL (6.6-8.7)
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
== END 2021-03-26 10:51 | disposition home or self-care (01) ==
LOC: ONCMED 10:53
PROVIDERS: PCP Electrodiagnostic Medicine; Visit Provider Internal Medicine Medical Oncology
DX: D75.1 Secondary polycythemia (principal); T60 Toxic effect of pesticides; G93.1 Anoxic brain damage, not elsewhere classified; F09 Unspecified mental disorder due to known physiological condition; G62.2 Polyneuropathy due to other toxic agents; G47.31 Primary central sleep apnea; R00.0 Tachycardia, unspecified; E23.7 Disorder of pituitary gland, unspecified; E29.1 Testicular hypofunction; R55 Syncope and collapse; E53.8 Deficiency of other specified B group vitamins; E51.9 Thiamine deficiency, unspecified; E55.9 Vitamin D deficiency, unspecified; N40.0 Benign prostatic hyperplasia without lower urinary tract symptoms; N20.0 Calculus of kidney; F32.A Depression, unspecified
CPT/HCPCS: 36415; 80053; 85025; 99195; 99214

== ENCOUNTER 2021-04-25 12:57 | Outpatient (CLI) | payer MEDICARE, BC, SELFPAY ==
[2021-04-25 13:28] LABS: Basophils # 0.1 10^3/uL (0.0-0.1); Basophils % 0.8 %; Eosinophils # 0.1 10^3/uL (0.0-0.8); Eosinophils % 1.8 %; Hematocrit 46.3 % (42.0-52.0); Hemoglobin 13.9 g/dL (11.7-16.6); Lymphocytes # 1.9 10^3/uL (0.8-4.8); Lymphocytes % 30.4 %; Mean Corpuscular Hemoglobin 24.4 pg (28.0-34.0); Mean Corpuscular Volume 81.4 fl (80-94); Mean Platelet Volume 9.6 fL (7.4-10.4); Monocytes # 0.5 10^3/uL (0.2-0.9); Monocytes % 7.9 %; Neutrophils # 3.58 10^3/uL (1.8-7.7); Neutrophils % 58.8 %; Nucleated Red Blood Cells % 0 %; Platelet Count 252 10^3/cmm (130-400); Red Blood Count 5.69 10^6/uL (4.1-5.3); Red Cell Distribution Width 13.6 % (12.1-15.1); White Blood Count 6.1 10^3/uL (4.0-10.0)
== END 2021-04-25 12:58 | disposition home or self-care (01) ==
LOC: ONCMED 13:02
PROVIDERS: PCP Electrodiagnostic Medicine; Visit Provider Internal Medicine Medical Oncology
DX: D75.1 Secondary polycythemia (principal)
CPT/HCPCS: 36415; 85025; 99195

== ENCOUNTER 2021-05-27 12:55 | Outpatient (CLI) | payer MEDICARE, BC, SELFPAY ==
[2021-05-27 13:24] LABS: Basophils # 0.1 10^3/uL (0.0-0.1); Basophils % 0.7 %; Eosinophils # 0.1 10^3/uL (0.0-0.8); Hematocrit 45.5 % (42.0-52.0); Hemoglobin 13.4 g/dL (11.7-16.6); Lymphocytes % 29.2 %; Mean Corpuscular HGB Conc 29.5 g/dL (30.0-36.0); Mean Corpuscular Hemoglobin 23.7 pg (28.0-34.0); Mean Corpuscular Volume 80.4 fl (80-94); Mean Platelet Volume 9.4 fL (7.4-10.4); Monocytes # 0.6 10^3/uL (0.2-0.9); Monocytes % 9.2 %; Neutrophils # 4.16 10^3/uL (1.8-7.7); Neutrophils % 59.8 %; Nucleated Red Blood Cells % 0 %; Platelet Count 261 10^3/cmm (130-400); Red Blood Count 5.66 10^6/uL (4.1-5.3); Red Cell Distribution Width 14.2 % (12.1-15.1)
== END 2021-05-27 12:56 | disposition home or self-care (01) ==
LOC: ONCMED 12:59
PROVIDERS: PCP Electrodiagnostic Medicine; Visit Provider Internal Medicine Medical Oncology
DX: D75.1 Secondary polycythemia (principal)
CPT/HCPCS: 36415; 85025; 99195

== ENCOUNTER 2021-06-24 12:49 | Outpatient (CLI) | payer MEDICARE, BC, SELFPAY ==
[2021-06-24 14:06] LABS: Basophils # 0.1 10^3/uL (0.0-0.1); Basophils % 0.8 %; Eosinophils # 0.1 10^3/uL (0.0-0.8); Eosinophils % 1.3 %; Hematocrit 44.3 % (42.0-52.0); Hemoglobin 13.2 g/dL (11.7-16.6); Lymphocytes # 2.1 10^3/uL (0.8-4.8); Lymphocytes % 32.4 %; Mean Corpuscular HGB Conc 29.8 g/dL (30.0-36.0); Mean Corpuscular Volume 80.4 fl (80-94); Mean Platelet Volume 9.7 fL (7.4-10.4); Monocytes # 0.6 10^3/uL (0.2-0.9); Monocytes % 9.3 %; Neutrophils # 3.55 10^3/uL (1.8-7.7); Nucleated Red Blood Cells % 0 %; Platelet Count 271 10^3/cmm (130-400); Red Blood Count 5.51 10^6/uL (4.1-5.3); Red Cell Distribution Width 14.4 % (12.1-15.1); White Blood Count 6.3 10^3/uL (4.0-10.0)
[2021-06-24 14:28] LABS: Alanine Aminotransferase 15 U/L (0-41); Albumin Level 4.6 g/dL (3.5-5.2); Alkaline Phosphatase 94 IU/L (40-130); Anion Gap 13.1 (5-19); Aspartate Amino Transferase 16 U/L (0-40); Blood Urea Nitrogen 11 mg/dL (6-20); Calcium 9.5 mg/dL (8.5-10.5); Carbon Dioxide 27 mmol/L (22-29); Chloride 101 mmol/L (98-107); Globulin 2.6 g/dL (1.3-4.6); Glomerular Filtration Rate 87.3 mL/min (90-130); Glucose 85 mg/dL (65-115); Osmolality Calculated 283 mOsm/kg (285-295); Potassium 4.1 mmol/L (3.5-5.1); Sodium 137 mmol/L (136-145); Total Bilirubin 0.3 mg/dL (0.15-1.2); Total Protein 7.2 g/dL (6.6-8.7)
== END 2021-06-24 12:50 | disposition home or self-care (01) ==
PROVIDERS: PCP Electrodiagnostic Medicine; Visit Provider Internal Medicine Medical Oncology
DX: D45 Polycythemia vera (principal)
CPT/HCPCS: 36415; 80053; 85025

== ENCOUNTER 2021-07-25 12:48 | Outpatient (CLI) | payer MEDICARE, BC, SELFPAY ==
[2021-07-25 13:21] LABS: Basophils # 0.1 10^3/uL (0.0-0.1); Basophils % 0.7 %; Eosinophils # 0.1 10^3/uL (0.0-0.8); Eosinophils % 1.3 %; Hematocrit 48.9 % (42.0-52.0); Hemoglobin 14.5 g/dL (11.7-16.6); Lymphocytes # 1.9 10^3/uL (0.8-4.8); Lymphocytes % 28.2 %; Mean Corpuscular HGB Conc 29.7 g/dL (30.0-36.0); Mean Corpuscular Hemoglobin 23.7 pg (28.0-34.0); Mean Platelet Volume 9.5 fL (7.4-10.4); Monocytes # 0.5 10^3/uL (0.2-0.9); Monocytes % 7.8 %; Neutrophils # 4.21 10^3/uL (1.8-7.7); Neutrophils % 61.7 %; Nucleated Red Blood Cells % 0 %; Platelet Count 259 10^3/cmm (130-400); Red Blood Count 6.11 10^6/uL (4.1-5.3); Red Cell Distribution Width 15.7 % (12.1-15.1); White Blood Count 6.8 10^3/uL (4.0-10.0)
== END 2021-07-25 12:49 | disposition home or self-care (01) ==
LOC: ONCMED 12:52
PROVIDERS: PCP Electrodiagnostic Medicine; Visit Provider Internal Medicine Medical Oncology
DX: D75.1 Secondary polycythemia (principal)
CPT/HCPCS: 85025; 99195

== ENCOUNTER 2021-08-22 13:07 | Oncology outpatient (recurring) (ONCR) | payer MEDICARE, BC, SELFPAY ==
[2021-08-22 13:48] LABS: Basophils # 0.1 10^3/uL (0.0-0.1); Basophils % 0.8 %; Eosinophils # 0.1 10^3/uL (0.0-0.8); Eosinophils % 1.1 %; Hematocrit 48.3 % (42.0-52.0); Hemoglobin 14.1 g/dL (11.7-16.6); Lymphocytes # 1.9 10^3/uL (0.8-4.8); Lymphocytes % 30.5 %; Mean Corpuscular HGB Conc 29.2 g/dL (30.0-36.0); Mean Corpuscular Hemoglobin 23.4 pg (28.0-34.0); Mean Corpuscular Volume 80.1 fl (80-94); Mean Platelet Volume 9.7 fL (7.4-10.4); Monocytes # 0.5 10^3/uL (0.2-0.9); Monocytes % 8.2 %; Neutrophils % 59.1 %; Nucleated Red Blood Cells % 0 %; Platelet Count 269 10^3/cmm (130-400); Red Blood Count 6.03 10^6/uL (4.1-5.3); Red Cell Distribution Width 15.3 % (12.1-15.1); White Blood Count 6.1 10^3/uL (4.0-10.0)
[2021-08-22 14:27] VITALS: BP 119/74; BP 135/78; PULSE 74; PULSE 79; RESP 16; TEMP 36.4; TEMP 36.5; O2SAT 94; O2SAT 95
== END 2021-09-03 23:59 | disposition home or self-care (01) ==
LOC: ONCMED 13:08
PROVIDERS: PCP Electrodiagnostic Medicine; Visit Provider Internal Medicine Medical Oncology
DX: D75.1 Secondary polycythemia (principal)
CPT/HCPCS: 85025; 99195

== ENCOUNTER 2021-09-26 12:39 | Oncology outpatient (recurring) (ONCR) | payer MEDICARE, BC, SELFPAY ==
[2021-09-26 13:20] LABS: Basophils # 0.1 10^3/uL (0.0-0.1); Basophils % 0.8 %; Eosinophils # 0.1 10^3/uL (0.0-0.8); Eosinophils % 0.9 %; Hemoglobin 13.8 g/dL (11.7-16.6); Lymphocytes # 2.2 10^3/uL (0.8-4.8); Lymphocytes % 33.4 %; Mean Corpuscular Hemoglobin 23.8 pg (28.0-34.0); Mean Corpuscular Volume 79.3 fl (80-94); Mean Platelet Volume 9.8 fL (7.4-10.4); Monocytes # 0.6 10^3/uL (0.2-0.9); Neutrophils # 3.57 10^3/uL (1.8-7.7); Neutrophils % 55.6 %; Nucleated Red Blood Cells % 0 %; Platelet Count 270 10^3/cmm (130-400); Red Cell Distribution Width 14.8 % (12.1-15.1); White Blood Count 6.4 10^3/uL (4.0-10.0)
[2021-09-26 13:51] VITALS: BP 124/79; PULSE 62; RESP 18; TEMP 37.1; O2SAT 94
[2021-09-26 14:09] VITALS: BP 115/72; PULSE 62; RESP 18; TEMP 36.9; O2SAT 95
== END 2021-10-03 23:59 | disposition home or self-care (01) ==
PROVIDERS: PCP Electrodiagnostic Medicine; Visit Provider Internal Medicine Medical Oncology
DX: D75.1 Secondary polycythemia (principal)
CPT/HCPCS: 36415; 85025; 99195

== ENCOUNTER 2021-10-29 12:19 | Oncology outpatient (recurring) (ONCR) | payer MEDICARE, BC, SELFPAY ==
[2021-10-29 13:06] LABS: Basophils # 0.1 10^3/uL (0.0-0.1); Basophils % 0.8 %; Eosinophils # 0.1 10^3/uL (0.0-0.8); Eosinophils % 0.9 %; Hematocrit 47.1 % (42.0-52.0); Lymphocytes # 1.9 10^3/uL (0.8-4.8); Lymphocytes % 29.2 %; Mean Corpuscular HGB Conc 29.7 g/dL (30.0-36.0); Mean Corpuscular Hemoglobin 23.6 pg (28.0-34.0); Mean Corpuscular Volume 79.4 fl (80-94); Mean Platelet Volume 9.6 fL (7.4-10.4); Monocytes # 0.5 10^3/uL (0.2-0.9); Monocytes % 6.9 %; Neutrophils # 4.05 10^3/uL (1.8-7.7); Nucleated Red Blood Cells % 0 %; Platelet Count 263 10^3/cmm (130-400); Red Blood Count 5.93 10^6/uL (4.1-5.3); Red Cell Distribution Width 14.6 % (12.1-15.1); White Blood Count 6.5 10^3/uL (4.0-10.0)
[2021-10-29 13:31] LABS: Alanine Aminotransferase 17 U/L (0-41); Albumin Level 4.5 g/dL (3.5-5.2); Alkaline Phosphatase 101 IU/L (40-130); Aspartate Amino Transferase 12 U/L (0-40); Blood Urea Nitrogen 12 mg/dL (6-20); Calcium 9.4 mg/dL (8.5-10.5); Carbon Dioxide 27 mmol/L (22-29); Chloride 103 mmol/L (98-107); Globulin 2.3 g/dL (1.3-4.6); Glomerular Filtration Rate 87.3 mL/min (90-130); Glucose 151 mg/dL (65-115); Osmolality Calculated 291 mOsm/kg (285-295); Sodium 139 mmol/L (136-145); Total Bilirubin 0.4 mg/dL (0.15-1.2); Total Protein 6.8 g/dL (6.6-8.7)
== END 2021-11-03 23:59 | disposition home or self-care (01) ==
PROVIDERS: PCP Electrodiagnostic Medicine; Visit Provider Internal Medicine Medical Oncology
DX: D75.1 Secondary polycythemia (principal); Z79.899 Other long term (current) drug therapy
CPT/HCPCS: 36415; 80053; 85025; 99195; 99214

== ENCOUNTER 2021-11-08 11:53 | Outpatient (CLI) | payer MEDICARE, BC, SELFPAY | END 2021-11-08 11:54 | disposition home or self-care (01) | LOC: LAB 11:59 | PROVIDERS: PCP Electrodiagnostic Medicine; Visit Provider Internal Medicine | DX: Z01.89 Encounter for other specified special examinations (principal) | CPT/HCPCS: 80307 ==

== ENCOUNTER 2021-12-30 13:24 | Oncology outpatient (recurring) (ONCR) | payer MEDICARE, BC, SELFPAY ==
[2021-12-30 13:57] LABS: Basophils # 0.1 10^3/uL (0.0-0.1); Basophils % 0.8 %; Eosinophils # 0.1 10^3/uL (0.0-0.8); Eosinophils % 0.9 %; Hematocrit 55.1 % (42.0-52.0); Hemoglobin 17.5 g/dL (11.7-16.6); Lymphocytes # 2.2 10^3/uL (0.8-4.8); Lymphocytes % 34.3 %; Mean Corpuscular HGB Conc 31.8 g/dL (30.0-36.0); Mean Corpuscular Volume 81.9 fl (80-94); Mean Platelet Volume 9.6 fL (7.4-10.4); Monocytes # 0.6 10^3/uL (0.2-0.9); Monocytes % 8.7 %; Neutrophils # 3.51 10^3/uL (1.8-7.7); Neutrophils % 54.8 %; Nucleated Red Blood Cells % 0 %; Platelet Count 235 10^3/cmm (130-400); Red Blood Count 6.73 10^6/uL (4.1-5.3); Red Cell Distribution Width 18.8 % (12.1-15.1); White Blood Count 6.4 10^3/uL (4.0-10.0)
[2021-12-30 14:40] VITALS: BP 110/75; PULSE 63; O2SAT 95
== END 2022-01-03 23:59 | disposition home or self-care (01) ==
LOC: ONCMED 13:25
PROVIDERS: PCP Electrodiagnostic Medicine; Visit Provider Internal Medicine Medical Oncology
DX: D75.1 Secondary polycythemia (principal)
CPT/HCPCS: 36415; 85025; 99195

== ENCOUNTER 2022-01-27 13:25 | Oncology outpatient (recurring) (ONCR) | payer MEDICARE, BC, SELFPAY ==
[2022-01-27 13:59] LABS: Basophils # 0.1 10^3/uL (0.0-0.1); Basophils % 0.7 %; Eosinophils # 0.1 10^3/uL (0.0-0.8); Hematocrit 53.7 % (42.0-52.0); Hemoglobin 17.6 g/dL (11.7-16.6); Lymphocytes # 2.1 10^3/uL (0.8-4.8); Lymphocytes % 30.7 %; Mean Corpuscular HGB Conc 32.8 g/dL (30.0-36.0); Mean Corpuscular Hemoglobin 27.5 pg (28.0-34.0); Mean Corpuscular Volume 83.9 fl (80-94); Mean Platelet Volume 9.6 fL (7.4-10.4); Monocytes # 0.6 10^3/uL (0.2-0.9); Monocytes % 8.5 %; Neutrophils # 3.93 10^3/uL (1.8-7.7); Neutrophils % 58.7 %; Nucleated Red Blood Cells % 0 %; Platelet Count 208 10^3/cmm (130-400); Red Cell Distribution Width 17.2 % (12.1-15.1); White Blood Count 6.7 10^3/uL (4.0-10.0)
[2022-01-27 16:27] VITALS: BP 118/74; PULSE 66; RESP 16; TEMP 36.4; O2SAT 98
== END 2022-02-03 23:59 | disposition home or self-care (01) ==
PROVIDERS: PCP Electrodiagnostic Medicine; Visit Provider Internal Medicine Medical Oncology
DX: D75.1 Secondary polycythemia (principal)
CPT/HCPCS: 85025; 99195

== ENCOUNTER 2022-02-25 13:25 | Oncology outpatient (recurring) (ONCR) | payer MEDICARE, BC, SELFPAY ==
[2022-02-25 13:54] LABS: Basophils % 0.7 %; Eosinophils # 0.1 10^3/uL (0.0-0.8); Eosinophils % 1.5 %; Hematocrit 52.5 % (42.0-52.0); Hemoglobin 17.7 g/dL (11.7-16.6); Lymphocytes # 1.7 10^3/uL (0.8-4.8); Lymphocytes % 29.2 %; Mean Corpuscular HGB Conc 33.7 g/dL (30.0-36.0); Mean Corpuscular Hemoglobin 29.1 pg (28.0-34.0); Mean Corpuscular Volume 86.2 fl (80-94); Mean Platelet Volume 9.1 fL (7.4-10.4); Monocytes # 0.4 10^3/uL (0.2-0.9); Monocytes % 6.9 %; Neutrophils # 3.63 10^3/uL (1.8-7.7); Neutrophils % 61.5 %; Nucleated Red Blood Cells % 0 %; Platelet Count 181 10^3/cmm (130-400); Red Blood Count 6.09 10^6/uL (4.1-5.3); Red Cell Distribution Width 14.6 % (12.1-15.1); White Blood Count 5.9 10^3/uL (4.0-10.0)
[2022-02-25 16:53] VITALS: BP 112/64; PULSE 80; RESP 16; TEMP 36.8; O2SAT 98
== END 2022-03-05 23:59 | disposition home or self-care (01) ==
LOC: ONCMED 13:26
PROVIDERS: PCP Electrodiagnostic Medicine; Visit Provider Internal Medicine Medical Oncology
DX: D75.1 Secondary polycythemia (principal)
CPT/HCPCS: 85025; 99195

== ENCOUNTER 2022-03-25 13:52 | Oncology outpatient (recurring) (ONCR) | payer MEDICARE, BC, SELFPAY ==
[2022-03-25 14:31] LABS: Basophils % 0.3 %; Eosinophils % 0.1 %; Hematocrit 55.4 % (42.0-52.0); Hemoglobin 18.6 g/dL (11.7-16.6); Lymphocytes # 1.1 10^3/uL (0.8-4.8); Lymphocytes % 10.7 %; Mean Corpuscular HGB Conc 33.6 g/dL (30.0-36.0); Mean Corpuscular Hemoglobin 29.7 pg (28.0-34.0); Mean Corpuscular Volume 88.5 fl (80-94); Mean Platelet Volume 9.5 fL (7.4-10.4); Monocytes # 0.5 10^3/uL (0.2-0.9); Monocytes % 5.5 %; Neutrophils # 8.21 10^3/uL (1.8-7.7); Nucleated Red Blood Cells % 0 %; Platelet Count 207 10^3/cmm (130-400); Red Blood Count 6.26 10^6/uL (4.1-5.3); Red Cell Distribution Width 13.1 % (12.1-15.1); White Blood Count 9.9 10^3/uL (4.0-10.0)
== END 2022-04-05 23:59 | disposition home or self-care (01) ==
LOC: ONCMED 13:52
PROVIDERS: PCP Electrodiagnostic Medicine; Visit Provider Internal Medicine Medical Oncology
DX: D75.1 Secondary polycythemia (principal); Z79.899 Other long term (current) drug therapy
CPT/HCPCS: 36415; 85025; 99195

== ENCOUNTER 2022-04-29 12:57 | Oncology outpatient (recurring) (ONCR) | payer MEDICARE, BC, SELFPAY ==
[2022-04-29 13:31] LABS: Basophils # 0.1 10^3/uL (0.0-0.1); Basophils % 0.6 %; Eosinophils % 0.5 %; Hematocrit 55.7 % (42.0-52.0); Hemoglobin 18.6 g/dL (11.7-16.6); Lymphocytes # 1.7 10^3/uL (0.8-4.8); Lymphocytes % 20.7 %; Mean Corpuscular HGB Conc 33.4 g/dL (30.0-36.0); Mean Corpuscular Hemoglobin 29.5 pg (28.0-34.0); Mean Corpuscular Volume 88.4 fl (80-94); Monocytes # 0.6 10^3/uL (0.2-0.9); Monocytes % 6.9 %; Neutrophils # 5.77 10^3/uL (1.8-7.7); Neutrophils % 70.8 %; Nucleated Red Blood Cells % 0 %; Platelet Count 206 10^3/cmm (130-400); Red Cell Distribution Width 12.5 % (12.1-15.1); White Blood Count 8.2 10^3/uL (4.0-10.0)
[2022-04-29 14:19] VITALS: BP 136/85; PULSE 70
== END 2022-05-06 23:59 | disposition home or self-care (01) ==
PROVIDERS: PCP Electrodiagnostic Medicine; Visit Provider Internal Medicine Medical Oncology
DX: D75.1 Secondary polycythemia (principal); Z79.899 Other long term (current) drug therapy
CPT/HCPCS: 36415; 85025; 99195; 99214

== ENCOUNTER 2022-05-27 14:02 | Oncology outpatient (recurring) (ONCR) | payer MEDICARE, BC, SELFPAY ==
[2022-05-13 13:29] LABS: Basophils % 0.6 %; Eosinophils % 0.5 %; Hematocrit 52.7 % (42.0-52.0); Hemoglobin 17.9 g/dL (11.7-16.6); Lymphocytes # 1.9 10^3/uL (0.8-4.8); Lymphocytes % 28.6 %; Mean Corpuscular Hemoglobin 29.9 pg (28.0-34.0); Mean Platelet Volume 8.9 fL (7.4-10.4); Monocytes # 0.5 10^3/uL (0.2-0.9); Monocytes % 8.1 %; Neutrophils # 4.03 10^3/uL (1.8-7.7); Neutrophils % 61.9 %; Nucleated Red Blood Cells % 0 %; Platelet Count 208 10^3/cmm (130-400); Red Blood Count 5.99 10^6/uL (4.1-5.3); Red Cell Distribution Width 12.5 % (12.1-15.1); White Blood Count 6.5 10^3/uL (4.0-10.0)
[2022-05-13 14:30] VITALS: BP 145/94; PULSE 73
[2022-05-27 14:50] LABS: Basophils # 0.1 10^3/uL (0.0-0.1); Basophils % 0.8 %; Eosinophils # 0.1 10^3/uL (0.0-0.8); Eosinophils % 0.7 %; Hemoglobin 17.3 g/dL (11.7-16.6); Lymphocytes % 26.7 %; Mean Corpuscular HGB Conc 33.3 g/dL (30.0-36.0); Mean Corpuscular Volume 87.1 fl (80-94); Monocytes # 0.6 10^3/uL (0.2-0.9); Monocytes % 7.5 %; Neutrophils # 4.67 10^3/uL (1.8-7.7); Neutrophils % 63.9 %; Nucleated Red Blood Cells % 0 %; Platelet Count 261 10^3/cmm (130-400); Red Blood Count 5.97 10^6/uL (4.1-5.3); Red Cell Distribution Width 12.5 % (12.1-15.1); White Blood Count 7.3 10^3/uL (4.0-10.0)
[2022-05-27 15:15] VITALS: BP 112/73; PULSE 73
== END 2022-06-03 23:59 | disposition home or self-care (01) ==
PROVIDERS: PCP Electrodiagnostic Medicine; Visit Provider Internal Medicine Medical Oncology
DX: D75.1 Secondary polycythemia (principal); Z79.899 Other long term (current) drug therapy
CPT/HCPCS: 36415; 85025; 99195

== ENCOUNTER 2022-06-24 13:00 | Oncology outpatient (recurring) (ONCR) | payer MEDICARE, BC, SELFPAY ==
[2022-06-10 13:31] LABS: Basophils # 0.1 10^3/uL (0.0-0.1); Eosinophils # 0.2 10^3/uL (0.0-0.8); Eosinophils % 3.5 %; Hematocrit 49.3 % (42.0-52.0); Hemoglobin 16.4 g/dL (11.7-16.6); Lymphocytes # 2.1 10^3/uL (0.8-4.8); Lymphocytes % 31.5 %; Mean Corpuscular HGB Conc 33.3 g/dL (30.0-36.0); Mean Corpuscular Hemoglobin 28.8 pg (28.0-34.0); Mean Corpuscular Volume 86.5 fl (80-94); Mean Platelet Volume 9.9 fL (7.4-10.4); Monocytes # 0.6 10^3/uL (0.2-0.9); Monocytes % 8.6 %; Neutrophils # 3.74 10^3/uL (1.8-7.7); Neutrophils % 55.3 %; Nucleated Red Blood Cells % 0 %; Platelet Count 283 10^3/cmm (130-400); Red Cell Distribution Width 12.3 % (12.1-15.1); White Blood Count 6.8 10^3/uL (4.0-10.0)
[2022-06-10 14:43] VITALS: BP 115/72; PULSE 69; TEMP 37.1; O2SAT 98
[2022-06-24 13:13] LABS: Basophils % 0.6 %; Eosinophils # 0.1 10^3/uL (0.0-0.8); Eosinophils % 1.7 %; Hematocrit 49.6 % (42.0-52.0); Hemoglobin 15.8 g/dL (11.7-16.6); Lymphocytes # 1.5 10^3/uL (0.8-4.8); Lymphocytes % 23.1 %; Mean Corpuscular HGB Conc 31.9 g/dL (30.0-36.0); Mean Corpuscular Hemoglobin 27.6 pg (28.0-34.0); Mean Corpuscular Volume 86.6 fl (80-94); Mean Platelet Volume 8.9 fL (7.4-10.4); Monocytes # 0.5 10^3/uL (0.2-0.9); Monocytes % 7.8 %; Neutrophils # 4.35 10^3/uL (1.8-7.7); Neutrophils % 66.5 %; Nucleated Red Blood Cells % 0 %; Platelet Count 249 10^3/cmm (130-400); Red Blood Count 5.73 10^6/uL (4.1-5.3); Red Cell Distribution Width 11.9 % (12.1-15.1); White Blood Count 6.5 10^3/uL (4.0-10.0)
[2022-06-24 13:50] VITALS: BP 138/73; PULSE 71; TEMP 37.2
== END 2022-07-04 23:59 | disposition home or self-care (01) ==
PROVIDERS: PCP Electrodiagnostic Medicine; Visit Provider Internal Medicine Medical Oncology
DX: D75.1 Secondary polycythemia (principal)
CPT/HCPCS: 36415; 85025; 99195

== ENCOUNTER 2022-07-22 13:45 | Oncology outpatient (recurring) (ONCR) | payer MEDICARE, BC, SELFPAY ==
[2022-07-08 13:31] LABS: Basophils % 0.6 %; Eosinophils # 0.1 10^3/uL (0.0-0.8); Eosinophils % 1.2 %; Hematocrit 46.6 % (42.0-52.0); Hemoglobin 15.1 g/dL (11.7-16.6); Lymphocytes # 2.3 10^3/uL (0.8-4.8); Lymphocytes % 34.2 %; Mean Corpuscular HGB Conc 32.4 g/dL (30.0-36.0); Mean Corpuscular Hemoglobin 27.7 pg (28.0-34.0); Mean Corpuscular Volume 85.3 fl (80-94); Mean Platelet Volume 9.3 fL (7.4-10.4); Monocytes # 0.6 10^3/uL (0.2-0.9); Monocytes % 9.2 %; Neutrophils # 3.75 10^3/uL (1.8-7.7); Neutrophils % 54.7 %; Nucleated Red Blood Cells % 0 %; Platelet Count 272 10^3/cmm (130-400); Red Blood Count 5.46 10^6/uL (4.1-5.3); White Blood Count 6.9 10^3/uL (4.0-10.0)
[2022-07-08 14:08] VITALS: BP 123/70; PULSE 56; RESP 17; TEMP 36.7; O2SAT 99
[2022-07-22 13:47] VITALS: BP 120/74; PULSE 67; TEMP 36.9; O2SAT 95
[2022-07-22 13:55] LABS: Basophils # 0.1 10^3/uL (0.0-0.1); Basophils % 0.8 %; Eosinophils # 0.1 10^3/uL (0.0-0.8); Eosinophils % 1.3 %; Hematocrit 44.4 % (42.0-52.0); Lymphocytes # 2.1 10^3/uL (0.8-4.8); Lymphocytes % 34.7 %; Mean Corpuscular HGB Conc 31.5 g/dL (30.0-36.0); Mean Corpuscular Hemoglobin 26.4 pg (28.0-34.0); Mean Corpuscular Volume 83.8 fl (80-94); Mean Platelet Volume 9.1 fL (7.4-10.4); Monocytes # 0.5 10^3/uL (0.2-0.9); Monocytes % 8.8 %; Neutrophils # 3.33 10^3/uL (1.8-7.7); Neutrophils % 54.2 %; Nucleated Red Blood Cells % 0 %; Platelet Count 266 10^3/cmm (130-400); Red Cell Distribution Width 11.9 % (12.1-15.1); White Blood Count 6.1 10^3/uL (4.0-10.0)
== END 2022-08-03 23:59 | disposition home or self-care (01) ==
PROVIDERS: PCP Electrodiagnostic Medicine; Visit Provider Internal Medicine Medical Oncology
DX: D75.1 Secondary polycythemia (principal); Z79.899 Other long term (current) drug therapy
CPT/HCPCS: 36415; 85025; 99195; 99213

== ENCOUNTER 2022-08-14 11:22 | Outpatient (RCR) | payer MEDICARE, BC, SELFPAY | END 2022-09-03 23:59 | disposition home or self-care (01) | LOC: SPT 11:22 | PROVIDERS: PCP Electrodiagnostic Medicine; Visit Provider Psychiatry & Neurology Neurology | DX: R26.89 Other abnormalities of gait and mobility (principal) | CPT/HCPCS: 97110; 97161; 97530 ==

== ENCOUNTER 2022-09-02 11:30 | Oncology outpatient (recurring) (ONCR) | payer MEDICARE, BC, SELFPAY ==
[2022-08-05 12:00] VITALS: BP 120/78; PULSE 74; RESP 18; TEMP 36.6; O2SAT 98
[2022-08-05 12:20] LABS: Basophils % 0.6 %; Eosinophils % 0.6 %; Hematocrit 46.1 % (42.0-52.0); Hemoglobin 14.8 g/dL (11.7-16.6); Lymphocytes # 1.8 10^3/uL (0.8-4.8); Lymphocytes % 28.3 %; Mean Corpuscular HGB Conc 32.1 g/dL (30.0-36.0); Mean Corpuscular Hemoglobin 26.5 pg (28.0-34.0); Mean Corpuscular Volume 82.5 fl (80-94); Mean Platelet Volume 9.5 fL (7.4-10.4); Monocytes # 0.5 10^3/uL (0.2-0.9); Monocytes % 7.5 %; Neutrophils # 4.08 10^3/uL (1.8-7.7); Neutrophils % 62.7 %; Nucleated Red Blood Cells % 0 %; Platelet Count 273 10^3/cmm (130-400); Red Blood Count 5.59 10^6/uL (4.1-5.3); Red Cell Distribution Width 12.3 % (12.1-15.1); White Blood Count 6.5 10^3/uL (4.0-10.0)
[2022-08-19 12:12] LABS: Basophils % 0.6 %; Eosinophils # 0.1 10^3/uL (0.0-0.8); Eosinophils % 0.9 %; Hematocrit 45.1 % (42.0-52.0); Hemoglobin 14.2 g/dL (11.7-16.6); Lymphocytes # 1.9 10^3/uL (0.8-4.8); Lymphocytes % 27.8 %; Mean Corpuscular HGB Conc 31.5 g/dL (30.0-36.0); Mean Corpuscular Hemoglobin 25.7 pg (28.0-34.0); Mean Corpuscular Volume 81.7 fl (80-94); Mean Platelet Volume 9.2 fL (7.4-10.4); Monocytes # 0.5 10^3/uL (0.2-0.9); Monocytes % 7.6 %; Neutrophils # 4.21 10^3/uL (1.8-7.7); Neutrophils % 62.8 %; Nucleated Red Blood Cells % 0 %; Platelet Count 261 10^3/cmm (130-400); Red Blood Count 5.52 10^6/uL (4.1-5.3); Red Cell Distribution Width 12.7 % (12.1-15.1); White Blood Count 6.7 10^3/uL (4.0-10.0)
[2022-08-19 13:19] VITALS: BP 139/75; PULSE 73; O2SAT 98
[2022-09-02 11:40] VITALS: BP 123/76; PULSE 74; RESP 17; TEMP 36.7; O2SAT 98
[2022-09-02 11:55] LABS: Basophils # 0.1 10^3/uL (0.0-0.1); Basophils % 0.9 %; Eosinophils # 0.1 10^3/uL (0.0-0.8); Eosinophils % 0.8 %; Hematocrit 45.9 % (42.0-52.0); Hemoglobin 14.1 g/dL (11.7-16.6); Lymphocytes # 1.7 10^3/uL (0.8-4.8); Lymphocytes % 25.8 %; Mean Corpuscular HGB Conc 30.7 g/dL (30.0-36.0); Mean Corpuscular Volume 81.5 fl (80-94); Mean Platelet Volume 9.4 fL (7.4-10.4); Monocytes # 0.5 10^3/uL (0.2-0.9); Monocytes % 7.7 %; Neutrophils # 4.29 10^3/uL (1.8-7.7); Neutrophils % 64.5 %; Nucleated Red Blood Cells % 0 %; Platelet Count 265 10^3/cmm (130-400); Red Blood Count 5.63 10^6/uL (4.1-5.3); Red Cell Distribution Width 13.1 % (12.1-15.1); White Blood Count 6.6 10^3/uL (4.0-10.0)
[2022-09-02 12:40] VITALS: BP 112/76; PULSE 78; RESP 18; TEMP 37.2; O2SAT 96
== END 2022-09-03 23:59 | disposition home or self-care (01) ==
PROVIDERS: Nurse Practitioner Family; PCP Electrodiagnostic Medicine; Visit Provider Internal Medicine Medical Oncology
DX: D75.1 Secondary polycythemia (principal)
CPT/HCPCS: 36415; 85025; 99195

== ENCOUNTER 2022-09-04 06:00 | Outpatient (RCR) | payer MEDICARE, BC, SELFPAY | END 2022-10-03 23:59 | disposition home or self-care (01) | LOC: SPT 06:00 | PROVIDERS: PCP Electrodiagnostic Medicine; Visit Provider Psychiatry & Neurology Neurology | DX: R26.89 Other abnormalities of gait and mobility (principal) | CPT/HCPCS: 97110 ==

== ENCOUNTER 2022-09-30 11:30 | Oncology outpatient (recurring) (ONCR) | payer MEDICARE, BC, SELFPAY ==
[2022-09-16 11:20] VITALS: BP 101/78; PULSE 78; RESP 18; TEMP 36.6; O2SAT 98
[2022-09-16 12:20] VITALS: BP 127/78; PULSE 67; RESP 18; TEMP 36.4; O2SAT 99
[2022-09-16 12:25] LABS: Basophils % 0.6 %; Eosinophils # 0.1 10^3/uL (0.0-0.8); Eosinophils % 1.4 %; Hematocrit 41.7 % (42.0-52.0); Hemoglobin 12.7 g/dL (11.7-16.6); Lymphocytes # 2.1 10^3/uL (0.8-4.8); Lymphocytes % 32.5 %; Mean Corpuscular HGB Conc 30.5 g/dL (30.0-36.0); Mean Corpuscular Hemoglobin 24.6 pg (28.0-34.0); Mean Corpuscular Volume 80.8 fl (80-94); Mean Platelet Volume 9.9 fL (7.4-10.4); Monocytes # 0.5 10^3/uL (0.2-0.9); Monocytes % 8.4 %; Neutrophils # 3.61 10^3/uL (1.8-7.7); Neutrophils % 56.9 %; Nucleated Red Blood Cells % 0 %; Platelet Count 292 10^3/cmm (130-400); Red Blood Count 5.16 10^6/uL (4.1-5.3); Red Cell Distribution Width 13.3 % (12.1-15.1); White Blood Count 6.3 10^3/uL (4.0-10.0)
[2022-09-16 12:48] LABS: T3 Free 3.3 PG/ML (2.0-4.4); Thyroid Stimulating Hormone 1.66 uIU/mL (0.27-4.20)
[2022-09-16 13:58] LABS: Free T4 Free Thyroxine 1.13 ng/dL (0.82-1.77)
--- NOTE | 2022-09-16 16:29 | PC.NURSE ---
Patients labs drawn with Dr Hyde reviewing the results with no phlebotomy today. Patient's labs for Dr Amor clinic drawn with the results given to .alfred
[2022-09-30 11:25] VITALS: BP 136/66; PULSE 74; RESP 18; TEMP 36.9; O2SAT 96
[2022-09-30 11:42] LABS: Basophils % 0.6 %; Eosinophils # 0.1 10^3/uL (0.0-0.8); Eosinophils % 1.2 %; Hematocrit 45.3 % (42.0-52.0); Hemoglobin 13.7 g/dL (11.7-16.6); Mean Corpuscular HGB Conc 30.2 g/dL (30.0-36.0); Mean Corpuscular Hemoglobin 24.5 pg (28.0-34.0); Mean Platelet Volume 8.8 fL (7.4-10.4); Monocytes # 0.6 10^3/uL (0.2-0.9); Monocytes % 9.5 %; Neutrophils # 3.79 10^3/uL (1.8-7.7); Neutrophils % 58.4 %; Nucleated Red Blood Cells % 0 %; Platelet Count 261 10^3/cmm (130-400); Red Blood Count 5.59 10^6/uL (4.1-5.3); Red Cell Distribution Width 13.5 % (12.1-15.1); White Blood Count 6.5 10^3/uL (4.0-10.0)
[2022-09-30 13:51] VITALS: BP 134/89; PULSE 76; RESP 22; TEMP 36.9; O2SAT 95
== END 2022-10-03 23:59 | disposition home or self-care (01) ==
PROVIDERS: Family Medicine; Nurse Practitioner Family; PCP Electrodiagnostic Medicine; Visit Provider Internal Medicine Medical Oncology
DX: D75.1 Secondary polycythemia (principal); E03.9 Hypothyroidism, unspecified
CPT/HCPCS: 36415; 84439; 84443; 84481; 85025; 99195

== ENCOUNTER 2022-10-04 01:00 | Outpatient (RCR) | payer MEDICARE, BC, SELFPAY | END 2022-11-03 23:59 | disposition home or self-care (01) | LOC: SPT 01:00 | PROVIDERS: PCP Electrodiagnostic Medicine; Visit Provider Psychiatry & Neurology Neurology | DX: R26.89 Other abnormalities of gait and mobility (principal); R29.6 Repeated falls | CPT/HCPCS: 97110 ==

== ENCOUNTER 2022-10-28 11:30 | Oncology outpatient (recurring) (ONCR) | payer MEDICARE, BC, SELFPAY ==
[2022-10-14 11:33] VITALS: BP 125/75; PULSE 73; RESP 16; TEMP 36.8; O2SAT 97
[2022-10-14 11:52] LABS: Basophils # 0.1 10^3/uL (0.0-0.1); Basophils % 0.7 %; Eosinophils # 0.1 10^3/uL (0.0-0.8); Eosinophils % 1.8 %; Hematocrit 43.4 % (42.0-52.0); Hemoglobin 13.3 g/dL (11.7-16.6); Lymphocytes # 1.8 10^3/uL (0.8-4.8); Lymphocytes % 27.1 %; Mean Corpuscular HGB Conc 30.6 g/dL (30.0-36.0); Mean Corpuscular Hemoglobin 24.6 pg (28.0-34.0); Mean Corpuscular Volume 80.2 fl (80-94); Mean Platelet Volume 9.3 fL (7.4-10.4); Monocytes # 0.6 10^3/uL (0.2-0.9); Monocytes % 8.1 %; Neutrophils # 4.18 10^3/uL (1.8-7.7); Nucleated Red Blood Cells % 0 %; Platelet Count 273 10^3/cmm (130-400); Red Blood Count 5.41 10^6/uL (4.1-5.3); Red Cell Distribution Width 13.8 % (12.1-15.1); White Blood Count 6.8 10^3/uL (4.0-10.0)
[2022-10-28 11:48] VITALS: BP 133/76; PULSE 83; RESP 18; TEMP 36.7; O2SAT 96
[2022-10-28 12:05] LABS: Basophils % 0.7 %; Eosinophils # 0.1 10^3/uL (0.0-0.8); Eosinophils % 1.3 %; Hematocrit 44.2 % (42.0-52.0); Hemoglobin 13.4 g/dL (11.7-16.6); Lymphocytes # 1.8 10^3/uL (0.8-4.8); Lymphocytes % 29.2 %; Mean Corpuscular HGB Conc 30.3 g/dL (30.0-36.0); Mean Corpuscular Hemoglobin 24.1 pg (28.0-34.0); Mean Corpuscular Volume 79.6 fl (80-94); Mean Platelet Volume 9.1 fL (7.4-10.4); Monocytes # 0.4 10^3/uL (0.2-0.9); Neutrophils # 3.78 10^3/uL (1.8-7.7); Neutrophils % 61.6 %; Nucleated Red Blood Cells % 0 %; Platelet Count 274 10^3/cmm (130-400); Red Blood Count 5.55 10^6/uL (4.1-5.3); White Blood Count 6.1 10^3/uL (4.0-10.0)
== END 2022-11-03 23:59 | disposition home or self-care (01) ==
PROVIDERS: Nurse Practitioner Family; PCP Electrodiagnostic Medicine; Visit Provider Internal Medicine Medical Oncology
DX: D75.1 Secondary polycythemia (principal)
CPT/HCPCS: 36415; 85025; 99214

== ENCOUNTER 2022-11-04 06:00 | Outpatient (RCR) | payer MEDICARE, BC, SELFPAY | END 2022-12-04 23:59 | disposition home or self-care (01) | LOC: SPT 06:00 | PROVIDERS: PCP Electrodiagnostic Medicine; Visit Provider Psychiatry & Neurology Neurology | DX: R26.89 Other abnormalities of gait and mobility (principal) | CPT/HCPCS: 97110; 97530 ==

== ENCOUNTER 2022-11-25 10:54 | Oncology outpatient (recurring) (ONCR) | payer MEDICARE, BC, SELFPAY ==
[2022-11-11 11:28] VITALS: BP 124/79; PULSE 88; RESP 18; TEMP 36.9; O2SAT 94
[2022-11-11 11:52] LABS: Basophils # 0.1 10^3/uL (0.0-0.1); Basophils % 0.9 %; Eosinophils # 0.1 10^3/uL (0.0-0.8); Eosinophils % 0.9 %; Hematocrit 47.6 % (42.0-52.0); Hemoglobin 14.3 g/dL (11.7-16.6); Lymphocytes # 1.5 10^3/uL (0.8-4.8); Mean Corpuscular Hemoglobin 23.9 pg (28.0-34.0); Mean Corpuscular Volume 79.6 fl (80-94); Mean Platelet Volume 9.6 fL (7.4-10.4); Monocytes # 0.3 10^3/uL (0.2-0.9); Monocytes % 5.9 %; Neutrophils # 3.88 10^3/uL (1.8-7.7); Neutrophils % 66.6 %; Nucleated Red Blood Cells % 0 %; Platelet Count 262 10^3/cmm (130-400); Red Blood Count 5.98 10^6/uL (4.1-5.3); Red Cell Distribution Width 14.2 % (12.1-15.1); White Blood Count 5.8 10^3/uL (4.0-10.0)
[2022-11-11 12:10] LABS: Ferritin 33 ng/mL (30-400); Iron 42 ug/dL (59-158); Percent Saturation 11.6 % (20-50); Total Iron Binding Capacity 361 mcg/dl; Unsaturated Iron Binding 319 ug/dL (112-347)
[2022-11-11 12:50] VITALS: BP 114/72; PULSE 71; RESP 20; TEMP 35.9; O2SAT 94
[2022-11-25 11:08] VITALS: BP 128/75; PULSE 67; RESP 18; TEMP 36.8; O2SAT 95
[2022-11-25 11:35] LABS: Basophils # 0.1 10^3/uL (0.0-0.1); Basophils % 0.8 %; Eosinophils # 0.1 10^3/uL (0.0-0.8); Eosinophils % 0.9 %; Hematocrit 43.6 % (42.0-52.0); Hemoglobin 13.6 g/dL (11.7-16.6); Lymphocytes % 31.8 %; Mean Corpuscular HGB Conc 31.2 g/dL (30.0-36.0); Mean Corpuscular Hemoglobin 24.9 pg (28.0-34.0); Mean Corpuscular Volume 79.7 fl (80-94); Mean Platelet Volume 9.4 fL (7.4-10.4); Monocytes # 0.5 10^3/uL (0.2-0.9); Monocytes % 7.7 %; Neutrophils # 3.73 10^3/uL (1.8-7.7); Neutrophils % 58.5 %; Nucleated Red Blood Cells % 0 %; Platelet Count 271 10^3/cmm (130-400); Red Blood Count 5.47 10^6/uL (4.1-5.3); Red Cell Distribution Width 14.5 % (12.1-15.1); White Blood Count 6.38 10^3/uL (3.29-11.43)
== END 2022-12-04 23:59 | disposition home or self-care (01) ==
PROVIDERS: Nurse Practitioner Family; PCP Electrodiagnostic Medicine; Visit Provider Internal Medicine Medical Oncology
DX: D75.1 Secondary polycythemia (principal)
CPT/HCPCS: 36415; 82728; 83540; 83550; 85025

== ENCOUNTER 2022-12-05 06:00 | Outpatient (RCR) | payer MEDICARE, BC, SELFPAY | END 2023-01-03 23:59 | disposition home or self-care (01) | LOC: SPT 06:00 | PROVIDERS: PCP Electrodiagnostic Medicine; Visit Provider Psychiatry & Neurology Neurology | DX: R26.89 Other abnormalities of gait and mobility (principal) | CPT/HCPCS: 97110; 97530 ==

== ENCOUNTER 2022-12-17 20:00 | Outpatient (CLI) | payer MEDICARE, BC, SELFPAY | END 2022-12-17 20:01 | disposition home or self-care (01) | LOC: SLEEP 12-18 05:28 | PROVIDERS: PCP Electrodiagnostic Medicine; Visit Provider Family Medicine | DX: G47.33 Obstructive sleep apnea (adult) (pediatric) (principal) | CPT/HCPCS: 95811 ==

== ENCOUNTER 2022-12-23 11:00 | Oncology outpatient (recurring) (ONCR) | payer MEDICARE, BC, SELFPAY ==
[2022-12-11 11:54] VITALS: BP 112/73; PULSE 68; RESP 17; TEMP 36.6; O2SAT 94
[2022-12-11 12:19] LABS: Basophils # 0.1 10^3/uL (0.0-0.1); Basophils % 0.9 %; Eosinophils # 0.1 10^3/uL (0.0-0.8); Eosinophils % 0.7 %; Hematocrit 48.4 % (37-53); Mean Corpuscular Hemoglobin 24.6 pg (27-33); Mean Corpuscular Volume 79.3 fl (82-101); Mean Platelet Volume 9.9 fL (7.4-10.4); Monocytes # 0.6 10^3/uL (0.2-0.9); Monocytes % 9.5 %; Neutrophils # 4.03 10^3/uL (1.8-7.7); Neutrophils % 59.8 %; Nucleated Red Blood Cells % 0 %; Platelet Count 278 10^3/cmm (157-399); Red Cell Distribution Width 15.5 % (12.1-15.1); White Blood Count 6.75 10^3/uL (3.29-11.43)
[2022-12-23 11:05] VITALS: BP 130/80; PULSE 66; RESP 17; TEMP 36.9; O2SAT 96
[2022-12-23 11:25] LABS: Basophils % 0.7 %; Eosinophils # 0.1 10^3/uL (0.0-0.8); Hematocrit 44.7 % (37-53); Lymphocytes # 1.7 10^3/uL (0.8-4.8); Lymphocytes % 28.3 %; Mean Corpuscular HGB Conc 30.9 g/dL (30-55); Mean Corpuscular Hemoglobin 24.7 pg (27-33); Mean Platelet Volume 9.3 fL (7.4-10.4); Monocytes # 0.5 10^3/uL (0.2-0.9); Monocytes % 7.4 %; Neutrophils # 3.83 10^3/uL (1.8-7.7); Neutrophils % 62.4 %; Nucleated Red Blood Cells % 0 %; Platelet Count 284 10^3/cmm (157-399); Red Blood Count 5.59 10^6/uL (3.85-5.65); Red Cell Distribution Width 15.3 % (12.1-15.1); White Blood Count 6.12 10^3/uL (3.29-11.43)
[2022-12-23 11:35] VITALS: BP 130/80; PULSE 66; RESP 17; TEMP 36.9; O2SAT 96
== END 2023-01-03 23:59 | disposition home or self-care (01) ==
PROVIDERS: Nurse Practitioner Family; PCP Electrodiagnostic Medicine; Visit Provider Internal Medicine Medical Oncology
DX: D75.1 Secondary polycythemia (principal); Z53.9 Procedure and treatment not carried out, unspecified reason
CPT/HCPCS: 36415; 85025; 99195

== ENCOUNTER 2023-01-04 06:00 | Outpatient (RCR) | payer MEDICARE, BC, SELFPAY | END 2023-02-03 23:59 | disposition home or self-care (01) | LOC: SPT 06:00 | PROVIDERS: PCP Electrodiagnostic Medicine; Visit Provider Psychiatry & Neurology Neurology | DX: R26.89 Other abnormalities of gait and mobility (principal) | CPT/HCPCS: 97110; 97530 ==

== ENCOUNTER 2023-01-19 11:30 | Oncology outpatient (recurring) (ONCR) | payer MEDICARE, BC, SELFPAY ==
[2023-01-08 15:07] LABS: Basophils # 0.1 10^3/uL (0.0-0.1); Basophils % 0.8 %; Eosinophils # 0.1 10^3/uL (0.0-0.8); Eosinophils % 0.8 %; Hematocrit 45.6 % (37-53); Lymphocytes % 30.9 %; Mean Corpuscular HGB Conc 31.6 g/dL (30-55); Mean Corpuscular Hemoglobin 25.1 pg (27-33); Mean Corpuscular Volume 79.4 fl (82-101); Mean Platelet Volume 9.6 fL (7.4-10.4); Monocytes # 0.5 10^3/uL (0.2-0.9); Monocytes % 8.1 %; Neutrophils # 3.87 10^3/uL (1.8-7.7); Neutrophils % 59.1 %; Nucleated Red Blood Cells % 0 %; Platelet Count 238 10^3/cmm (157-399); Red Blood Count 5.74 10^6/uL (3.85-5.65); Red Cell Distribution Width 14.9 % (12.1-15.1); White Blood Count 6.54 10^3/uL (3.29-11.43)
[2023-01-08 15:31] LABS: Alanine Aminotransferase 16 U/L (0-41); Albumin Level 4.4 g/dL (3.5-5.2); Alkaline Phosphatase 95 U/L (40-130); Anion Gap 13.2 (5-19); Aspartate Amino Transferase 16 U/L (0-40); Blood Urea Nitrogen 9 mg/dL (6-20); Carbon Dioxide 28 mmol/L (22-29); Chloride 101 mmol/L (98-107); Globulin 2.7 g/dL (1.3-4.6); Glucose 105 mg/dL (65-115); Osmolality Calculated 285 mOsm/kg (285-295); Potassium 4.2 mmol/L (3.5-5.1); Sodium 138 mmol/L (136-145); Total Bilirubin 0.3 mg/dL (0.15-1.2); Total Protein 7.1 g/dL (6.6-8.7)
[2023-01-08 16:33] VITALS: BP 113/77; PULSE 70; TEMP 36.6; O2SAT 95
[2023-01-19 11:20] VITALS: BP 133/75; PULSE 68; RESP 16; TEMP 37.1; O2SAT 98
[2023-01-19 11:34] LABS: Basophils % 0.7 %; Eosinophils # 0.1 10^3/uL (0.0-0.8); Eosinophils % 0.9 %; Hematocrit 45.3 % (37-53); Lymphocytes # 1.5 10^3/uL (0.8-4.8); Lymphocytes % 27.2 %; Mean Corpuscular HGB Conc 30.5 g/dL (30-55); Mean Corpuscular Hemoglobin 24.9 pg (27-33); Mean Corpuscular Volume 81.6 fl (82-101); Mean Platelet Volume 9.3 fL (7.4-10.4); Monocytes # 0.4 10^3/uL (0.2-0.9); Monocytes % 7.1 %; Neutrophils # 3.61 10^3/uL (1.8-7.7); Neutrophils % 63.7 %; Nucleated Red Blood Cells % 0 %; Platelet Count 270 10^3/cmm (157-399); Red Blood Count 5.55 10^6/uL (3.85-5.65); Red Cell Distribution Width 14.6 % (12.1-15.1); White Blood Count 5.66 10^3/uL (3.29-11.43)
== END 2023-02-03 23:59 | disposition home or self-care (01) ==
PROVIDERS: Nurse Practitioner Family; PCP Electrodiagnostic Medicine; Visit Provider Internal Medicine Medical Oncology
DX: D75.1 Secondary polycythemia (principal); D72.829 Elevated white blood cell count, unspecified
CPT/HCPCS: 36415; 80053; 85025; 99195; 99214

== ENCOUNTER 2023-01-26 11:04 | Oncology outpatient (recurring) (ONCR) | payer MEDICARE, BC, SELFPAY ==
[2023-01-26 11:10] VITALS: BP 117/68; PULSE 73; RESP 16; TEMP 37; O2SAT 96
[2023-01-26 11:25] LABS: Basophils % 0.6 %; Eosinophils # 0.1 10^3/uL (0.0-0.8); Eosinophils % 0.7 %; Hematocrit 43.3 % (37-53); Lymphocytes # 1.8 10^3/uL (0.8-4.8); Mean Corpuscular HGB Conc 31.2 g/dL (30-55); Mean Corpuscular Hemoglobin 25.1 pg (27-33); Mean Corpuscular Volume 80.6 fl (82-101); Monocytes # 0.5 10^3/uL (0.2-0.9); Monocytes % 7.3 %; Neutrophils # 4.63 10^3/uL (1.8-7.7); Neutrophils % 66.1 %; Nucleated Red Blood Cells % 0 %; Platelet Count 271 10^3/cmm (157-399); Red Blood Count 5.37 10^6/uL (3.85-5.65); Red Cell Distribution Width 14.7 % (12.1-15.1)
== END 2023-02-03 23:59 | disposition home or self-care (01) ==
LOC: ONCMED 11:05
PROVIDERS: Nurse Practitioner Family; PCP Electrodiagnostic Medicine; Visit Provider Internal Medicine Medical Oncology
DX: D75.1 Secondary polycythemia (principal)
CPT/HCPCS: 36415; 85025

== ENCOUNTER 2023-02-04 06:00 | Outpatient (RCR) | payer MEDICARE, BC, SELFPAY | END 2023-03-05 23:59 | disposition home or self-care (01) | LOC: SPT 06:00 | PROVIDERS: PCP Electrodiagnostic Medicine; Visit Provider Psychiatry & Neurology Neurology | DX: R26.89 Other abnormalities of gait and mobility (principal); R29.6 Repeated falls | CPT/HCPCS: 97110; 97530 ==

== ENCOUNTER 2023-02-23 10:54 | Oncology outpatient (recurring) (ONCR) | payer MEDICARE, BC, SELFPAY ==
[2023-02-23 11:15] VITALS: BP 110/78; PULSE 78; RESP 18; TEMP 36.6; O2SAT 98
[2023-02-23 11:30] LABS: Basophils % 0.5 %; Eosinophils # 0.1 10^3/uL (0.0-0.8); Eosinophils % 0.8 %; Hematocrit 48.3 % (37-53); Lymphocytes # 1.7 10^3/uL (0.8-4.8); Lymphocytes % 26.8 %; Mean Corpuscular HGB Conc 31.5 g/dL (30-55); Mean Corpuscular Hemoglobin 25.2 pg (27-33); Mean Corpuscular Volume 80.2 fl (82-101); Mean Platelet Volume 9.4 fL (7.4-10.4); Monocytes # 0.5 10^3/uL (0.2-0.9); Neutrophils # 4.12 10^3/uL (1.8-7.7); Neutrophils % 63.7 %; Nucleated Red Blood Cells % 0 %; Platelet Count 239 10^3/cmm (157-399); Red Blood Count 6.02 10^6/uL (3.85-5.65); Red Cell Distribution Width 14.5 % (12.1-15.1); White Blood Count 6.46 10^3/uL (3.29-11.43)
[2023-02-23 14:52] VITALS: BP 109/59; PULSE 74; RESP 18; TEMP 36.6; O2SAT 98
== END 2023-03-05 23:59 | disposition home or self-care (01) ==
LOC: ONCMED 10:55
PROVIDERS: Nurse Practitioner Family; PCP Electrodiagnostic Medicine; Visit Provider Internal Medicine Medical Oncology
DX: D75.1 Secondary polycythemia (principal)
CPT/HCPCS: 36415; 85025; 99195

== ENCOUNTER 2023-03-06 06:00 | Outpatient (RCR) | payer MEDICARE, BC, SELFPAY | END 2023-04-05 23:59 | disposition home or self-care (01) | LOC: SPT 06:00 | PROVIDERS: PCP Electrodiagnostic Medicine; Visit Provider Internal Medicine | DX: R26.89 Other abnormalities of gait and mobility (principal) | CPT/HCPCS: 97110; 97530 ==

== ENCOUNTER 2023-03-23 13:01 | Oncology outpatient (recurring) (ONCR) | payer MEDICARE, BC, SELFPAY ==
[2023-03-23 13:27] VITALS: BP 124/71; PULSE 69; RESP 16; TEMP 36.4; O2SAT 96
[2023-03-23 13:42] LABS: Basophils # 0.1 10^3/uL (0.0-0.1); Basophils % 0.7 %; Eosinophils # 0.1 10^3/uL (0.0-0.8); Eosinophils % 0.9 %; Hematocrit 46.1 % (37-53); Lymphocytes # 2.1 10^3/uL (0.8-4.8); Lymphocytes % 30.2 %; Mean Corpuscular HGB Conc 31.7 g/dL (30-55); Mean Corpuscular Hemoglobin 25.3 pg (27-33); Mean Corpuscular Volume 79.9 fl (82-101); Mean Platelet Volume 9.6 fL (7.4-10.4); Monocytes # 0.5 10^3/uL (0.2-0.9); Monocytes % 7.9 %; Neutrophils # 4.12 10^3/uL (1.8-7.7); Nucleated Red Blood Cells % 0 %; Platelet Count 263 10^3/cmm (157-399); Red Blood Count 5.77 10^6/uL (3.85-5.65); Red Cell Distribution Width 13.8 % (12.1-15.1); White Blood Count 6.86 10^3/uL (3.29-11.43)
[2023-03-23 14:15] VITALS: BP 120/73; PULSE 62; RESP 18; TEMP 36.6; O2SAT 96
== END 2023-04-05 23:59 | disposition home or self-care (01) ==
LOC: ONCMED 13:01
PROVIDERS: PCP Electrodiagnostic Medicine; Visit Provider Internal Medicine Medical Oncology
DX: D75.1 Secondary polycythemia (principal)
CPT/HCPCS: 36415; 85025; 99195

== ENCOUNTER 2023-04-06 06:00 | Outpatient (RCR) | payer MEDICARE, BC, SELFPAY | END 2023-05-06 23:59 | disposition home or self-care (01) | LOC: SPT 06:00 | PROVIDERS: PCP Electrodiagnostic Medicine; Visit Provider Internal Medicine | DX: R26.89 Other abnormalities of gait and mobility (principal) | CPT/HCPCS: 97530 ==

== ENCOUNTER 2023-05-04 13:10 | Oncology outpatient (recurring) (ONCR) | payer MEDICARE, BC, SELFPAY ==
[2023-05-04 13:19] VITALS: BP 125/70; PULSE 70; RESP 18; TEMP 36.4; O2SAT 95
[2023-05-04 13:33] LABS: Basophils % 0.4 %; Eosinophils # 0.1 10^3/uL (0.0-0.8); Eosinophils % 0.9 %; Hematocrit 47.4 % (37-53); Lymphocytes # 2.3 10^3/uL (0.8-4.8); Lymphocytes % 32.8 %; Mean Corpuscular HGB Conc 31.4 g/dL (30-55); Mean Corpuscular Hemoglobin 24.8 pg (27-33); Mean Corpuscular Volume 78.7 fl (82-101); Mean Platelet Volume 9.6 fL (7.4-10.4); Monocytes # 0.6 10^3/uL (0.2-0.9); Monocytes % 8.7 %; Neutrophils # 3.94 10^3/uL (1.8-7.7); Neutrophils % 56.9 %; Nucleated Red Blood Cells % 0 %; Platelet Count 270 10^3/cmm (157-399); Red Blood Count 6.02 10^6/uL (3.85-5.65); Red Cell Distribution Width 14.7 % (12.1-15.1); White Blood Count 6.92 10^3/uL (3.29-11.43)
[2023-05-04 15:50] VITALS: BP 112/72; PULSE 61; RESP 16; TEMP 36.1; O2SAT 96
[2023-05-04 15:56] VITALS: BP 112/72; PULSE 61; RESP 18; TEMP 36.1; O2SAT 98
== END 2023-05-06 23:59 | disposition home or self-care (01) ==
PROVIDERS: Nurse Practitioner Family; PCP Electrodiagnostic Medicine; Visit Provider Internal Medicine Medical Oncology
DX: D75.1 Secondary polycythemia (principal); D72.829 Elevated white blood cell count, unspecified; D45 Polycythemia vera
CPT/HCPCS: 36415; 85025; 99195; 99214

== ENCOUNTER 2023-05-07 06:00 | Outpatient (RCR) | payer MEDICARE, BC, SELFPAY | END 2023-06-04 23:59 | disposition home or self-care (01) | LOC: SPT 06:00 | PROVIDERS: PCP Electrodiagnostic Medicine; Visit Provider Internal Medicine | DX: R26.89 Other abnormalities of gait and mobility (principal) | CPT/HCPCS: 97110; 97530 ==

== ENCOUNTER 2023-06-04 13:34 | Oncology outpatient (recurring) (ONCR) | payer MEDICARE, BC, SELFPAY ==
[2023-06-04 14:00] LABS: Basophils # 0.1 10^3/uL (0.0-0.1); Basophils % 0.7 %; Eosinophils # 0.1 10^3/uL (0.0-0.8); Eosinophils % 1.6 %; Hematocrit 49.3 % (37-53); Lymphocytes # 2.1 10^3/uL (0.8-4.8); Mean Corpuscular Volume 80.4 fl (82-101); Mean Platelet Volume 9.5 fL (7.4-10.4); Monocytes # 0.5 10^3/uL (0.2-0.9); Monocytes % 7.7 %; Neutrophils # 4.18 10^3/uL (1.8-7.7); Neutrophils % 59.7 %; Nucleated Red Blood Cells % 0 %; Platelet Count 235 10^3/cmm (157-399); Red Blood Count 6.13 10^6/uL (3.85-5.65); Red Cell Distribution Width 15.1 % (12.1-15.1)
[2023-06-04 14:29] VITALS: BP 121/75; PULSE 70; RESP 17; TEMP 37.1; O2SAT 95
== END 2023-06-04 23:59 | disposition home or self-care (01) ==
LOC: ONCMED 13:35
PROVIDERS: Nurse Practitioner Family; PCP Electrodiagnostic Medicine; Visit Provider Internal Medicine Medical Oncology
DX: D75.1 Secondary polycythemia (principal)
CPT/HCPCS: 36415; 85025; 99195

== ENCOUNTER 2023-07-06 06:00 | Outpatient (RCR) | payer MEDICARE, BC, SELFPAY | END 2023-08-04 23:59 | disposition home or self-care (01) | LOC: SPT 06:00 | PROVIDERS: PCP Electrodiagnostic Medicine; Visit Provider Internal Medicine | DX: R26.89 Other abnormalities of gait and mobility (principal); R29.6 Repeated falls | CPT/HCPCS: 97110 ==

== ENCOUNTER 2023-07-07 12:39 | Oncology outpatient (recurring) (ONCR) | payer MEDICARE, BC, SELFPAY ==
[2023-07-07 13:16] LABS: Basophils % 0.6 %; Eosinophils # 0.1 10^3/uL (0.0-0.8); Hematocrit 48.5 % (37-53); Lymphocytes # 2.2 10^3/uL (0.8-4.8); Lymphocytes % 30.4 %; Mean Corpuscular HGB Conc 31.5 g/dL (30-55); Mean Corpuscular Volume 79.4 fl (82-101); Mean Platelet Volume 9.1 fL (7.4-10.4); Monocytes # 0.6 10^3/uL (0.2-0.9); Monocytes % 8.1 %; Neutrophils # 4.32 10^3/uL (1.8-7.7); Neutrophils % 59.5 %; Nucleated Red Blood Cells % 0 %; Platelet Count 267 10^3/cmm (157-399); Red Blood Count 6.11 10^6/uL (3.85-5.65); Red Cell Distribution Width 14.7 % (12.1-15.1); White Blood Count 7.26 10^3/uL (3.29-11.43)
[2023-07-07 13:31] LABS: Alanine Aminotransferase 24 U/L (0-41); Albumin Level 3.8 g/dL (3.5-5.2); Alkaline Phosphatase 106 U/L (40-130); Anion Gap 12.4 (5-19); Aspartate Amino Transferase 20 U/L (0-40); Blood Urea Nitrogen 10 mg/dL (6-20); Calcium 8.8 mg/dL (8.5-10.5); Carbon Dioxide 26 mmol/L (22-29); Chloride 106 mmol/L (98-107); Globulin 2.7 g/dL (1.3-4.6); Glomerular Filtration Rate 99.3 mL/min (90-130); Glucose 82 mg/dL (65-115); Osmolality Calculated 288 mOsm/kg (285-295); Potassium 4.4 mmol/L (3.5-5.1); Sodium 140 mmol/L (136-145); Total Bilirubin 0.2 mg/dL (0.15-1.2); Total Protein 6.5 g/dL (6.6-8.7)
[2023-07-07 14:45] VITALS: BP 124/75; PULSE 69; RESP 16; TEMP 36.8; O2SAT 96
== END 2023-08-04 23:59 | disposition home or self-care (01) ==
PROVIDERS: Nurse Practitioner Family; PCP Electrodiagnostic Medicine; Visit Provider Internal Medicine Medical Oncology
DX: D75.1 Secondary polycythemia (principal); D72.829 Elevated white blood cell count, unspecified; D45 Polycythemia vera; Z79.899 Other long term (current) drug therapy
CPT/HCPCS: 80053; 85025; 99195; 99214

== ENCOUNTER 2023-08-12 12:30 | Oncology outpatient (recurring) (ONCR) | payer MEDICARE, BC, SELFPAY ==
[2023-08-12 13:17] LABS: Basophils % 0.6 %; Eosinophils # 0.1 10^3/uL (0.0-0.8); Eosinophils % 1.4 %; Hematocrit 49.5 % (37-53); Lymphocytes # 2.1 10^3/uL (0.8-4.8); Lymphocytes % 30.2 %; Mean Corpuscular HGB Conc 32.1 g/dL (30-55); Mean Corpuscular Hemoglobin 25.9 pg (27-33); Mean Corpuscular Volume 80.8 fl (82-101); Monocytes # 0.6 10^3/uL (0.2-0.9); Monocytes % 8.8 %; Neutrophils # 4.14 10^3/uL (1.8-7.7); Neutrophils % 58.7 %; Nucleated Red Blood Cells % 0 %; Platelet Count 235 10^3/cmm (157-399); Red Blood Count 6.13 10^6/uL (3.85-5.65); Red Cell Distribution Width 14.7 % (12.1-15.1); White Blood Count 7.05 10^3/uL (3.29-11.43)
[2023-08-12 14:29] VITALS: BP 126/77; PULSE 73; RESP 16; TEMP 36.8; O2SAT 98
== END 2023-09-04 23:59 | disposition home or self-care (01) ==
LOC: ONCMED 12:31
PROVIDERS: PCP Electrodiagnostic Medicine; Visit Provider Internal Medicine Medical Oncology
DX: D75.1 Secondary polycythemia (principal); D72.829 Elevated white blood cell count, unspecified; D45 Polycythemia vera; Z79.899 Other long term (current) drug therapy
CPT/HCPCS: 36415; 85025; 99195

== ENCOUNTER 2023-09-09 13:41 | Oncology outpatient (recurring) (ONCR) | payer MEDICARE, BC, SELFPAY ==
[2023-09-09 14:23] LABS: Basophils % 0.6 %; Eosinophils # 0.1 10^3/uL (0.0-0.8); Eosinophils % 1.1 %; Lymphocytes % 31.9 %; Mean Corpuscular HGB Conc 32.4 g/dL (30-55); Mean Corpuscular Hemoglobin 25.9 pg (27-33); Mean Corpuscular Volume 80.1 fl (82-101); Mean Platelet Volume 9.7 fL (7.4-10.4); Monocytes # 0.5 10^3/uL (0.2-0.9); Monocytes % 7.3 %; Neutrophils # 3.76 10^3/uL (1.8-7.7); Neutrophils % 58.8 %; Nucleated Red Blood Cells % 0 %; Platelet Count 244 10^3/cmm (157-399); Red Blood Count 6.37 10^6/uL (3.85-5.65); Red Cell Distribution Width 14.1 % (12.1-15.1)
[2023-09-09 15:30] VITALS: BP 112/68; PULSE 84; RESP 16; TEMP 36.1; O2SAT 98
== END 2023-10-04 23:59 | disposition home or self-care (01) ==
LOC: ONCMED 13:42
PROVIDERS: PCP Electrodiagnostic Medicine; Visit Provider Internal Medicine Medical Oncology
DX: D75.1 Secondary polycythemia (principal)
CPT/HCPCS: 36415; 85025; 99195

== ENCOUNTER 2023-11-04 14:00 | Oncology outpatient (recurring) (ONCR) | payer MEDICARE, BC, SELFPAY ==
[2023-10-07 12:20] VITALS: BP 128/81; PULSE 78; RESP 18; TEMP 36.6; O2SAT 98
[2023-10-07 12:31] VITALS: BP 128/81; PULSE 70; RESP 18; TEMP 36.9; O2SAT 97
[2023-10-07 12:45] LABS: Basophils % 0.4 %; Eosinophils # 0.1 10^3/uL (0.0-0.8); Eosinophils % 1.4 %; Hematocrit 49.9 % (37-53); Lymphocytes % 28.9 %; Mean Corpuscular HGB Conc 32.3 g/dL (30-55); Mean Corpuscular Hemoglobin 26.2 pg (27-33); Mean Corpuscular Volume 81.3 fl (82-101); Mean Platelet Volume 9.5 fL (7.4-10.4); Monocytes # 0.5 10^3/uL (0.2-0.9); Monocytes % 7.8 %; Neutrophils # 4.23 10^3/uL (1.8-7.7); Neutrophils % 61.2 %; Nucleated Red Blood Cells % 0 %; Platelet Count 238 10^3/cmm (157-399); Red Blood Count 6.14 10^6/uL (3.85-5.65); Red Cell Distribution Width 14.3 % (12.1-15.1); White Blood Count 6.92 10^3/uL (3.29-11.43)
[2023-10-07 13:13] LABS: Alanine Aminotransferase 24 U/L (0-41); Albumin Level 4.4 g/dL (3.5-5.2); Alkaline Phosphatase 109 U/L (40-130); Anion Gap 15.1 (5-19); Aspartate Amino Transferase 20 U/L (0-40); Blood Urea Nitrogen 9 mg/dL (6-20); Calcium 9.3 mg/dL (8.5-10.5); Carbon Dioxide 26 mmol/L (22-29); Chloride 101 mmol/L (98-107); Creatinine Clr Calc Pharmacy 100.9278; Globulin 2.9 g/dL (1.3-4.6); Glomerular Filtration Rate 86.7 mL/min (90-130); Glucose 124 mg/dL (65-115); Osmolality Calculated 286 mOsm/kg (285-295); Potassium 4.1 mmol/L (3.5-5.1); Sodium 138 mmol/L (136-145); Total Bilirubin 0.4 mg/dL (0.15-1.2); Total Protein 7.3 g/dL (6.6-8.7)
[2023-10-07 13:30] VITALS: BP 124/68; PULSE 74; RESP 18; TEMP 36.6; O2SAT 94
[2023-11-04 14:24] LABS: Basophils # 0.1 10^3/uL (0.0-0.1); Basophils % 0.7 %; Eosinophils # 0.1 10^3/uL (0.0-0.8); Eosinophils % 0.6 %; Hematocrit 51.9 % (37-53); Lymphocytes % 22.9 %; Mean Corpuscular HGB Conc 31.4 g/dL (30-55); Mean Corpuscular Hemoglobin 25.7 pg (27-33); Mean Corpuscular Volume 81.7 fl (82-101); Mean Platelet Volume 9.3 fL (7.4-10.4); Monocytes # 0.7 10^3/uL (0.2-0.9); Monocytes % 7.9 %; Neutrophils # 5.92 10^3/uL (1.8-7.7); Neutrophils % 67.3 %; Nucleated Red Blood Cells % 0 %; Platelet Count 245 10^3/cmm (157-399); Red Blood Count 6.35 10^6/uL (3.85-5.65); Red Cell Distribution Width 14.2 % (12.1-15.1); White Blood Count 8.78 10^3/uL (3.29-11.43)
== END 2023-11-04 23:59 | disposition home or self-care (01) ==
PROVIDERS: Nurse Practitioner Family; PCP Electrodiagnostic Medicine; Visit Provider Internal Medicine Medical Oncology
DX: Z53.9 Procedure and treatment not carried out, unspecified reason (principal); D75.1 Secondary polycythemia
CPT/HCPCS: 36415; 80053; 85025; 99195; 99214

== ENCOUNTER 2023-12-02 13:50 | Oncology outpatient (recurring) (ONCR) | payer MEDICARE, BC, SELFPAY ==
[2023-12-02 14:34] LABS: Basophils # 0.1 10^3/uL (0.0-0.1); Basophils % 0.8 %; Eosinophils % 0.5 %; Hematocrit 51.6 % (37-53); Lymphocytes # 1.7 10^3/uL (0.8-4.8); Lymphocytes % 26.9 %; Mean Corpuscular HGB Conc 31.8 g/dL (30-55); Mean Corpuscular Hemoglobin 26.1 pg (27-33); Mean Platelet Volume 8.8 fL (7.4-10.4); Monocytes # 0.6 10^3/uL (0.2-0.9); Monocytes % 8.6 %; Neutrophils # 4.03 10^3/uL (1.8-7.7); Neutrophils % 62.9 %; Nucleated Red Blood Cells % 0 %; Platelet Count 211 10^3/cmm (157-399); Red Blood Count 6.29 10^6/uL (3.85-5.65); Red Cell Distribution Width 14.1 % (12.1-15.1)
[2023-12-02 14:51] VITALS: BP 116/72; PULSE 67; RESP 16; TEMP 36.8; O2SAT 97
[2023-12-02 15:08] VITALS: BP 113/76; PULSE 71; RESP 16; TEMP 36.6; O2SAT 96
== END 2023-12-05 23:59 | disposition home or self-care (01) ==
PROVIDERS: Nurse Practitioner Family; PCP Electrodiagnostic Medicine; Visit Provider Internal Medicine Medical Oncology
DX: D75.1 Secondary polycythemia; Z79.899 Other long term (current) drug therapy
CPT/HCPCS: 36415; 85025; 99195

== ENCOUNTER 2023-12-30 12:28 | Oncology outpatient (recurring) (ONCR) | payer MEDICARE, BC, SELFPAY ==
[2023-12-30 13:17] LABS: Basophils % 0.5 %; Eosinophils # 0.1 10^3/uL (0.0-0.8); Eosinophils % 0.9 %; Mean Corpuscular HGB Conc 32.3 g/dL (30-55); Mean Corpuscular Volume 80.4 fl (82-101); Mean Platelet Volume 8.9 fL (7.4-10.4); Monocytes # 0.5 10^3/uL (0.2-0.9); Monocytes % 7.7 %; Neutrophils # 4.01 10^3/uL (1.8-7.7); Neutrophils % 60.4 %; Nucleated Red Blood Cells % 0 %; Platelet Count 207 10^3/cmm (157-399); Red Blood Count 6.47 10^6/uL (3.85-5.65); Red Cell Distribution Width 13.8 % (12.1-15.1); White Blood Count 6.63 10^3/uL (3.29-11.43)
[2023-12-30 13:33] LABS: Alanine Aminotransferase 34 U/L (0-41); Albumin Level 4.2 g/dL (3.5-5.2); Alkaline Phosphatase 111 U/L (40-130); Aspartate Amino Transferase 18 U/L (0-40); Blood Urea Nitrogen 8 mg/dL (6-20); Calcium 9.2 mg/dL (8.5-10.5); Carbon Dioxide 26 mmol/L (22-29); Chloride 99 mmol/L (98-107); Globulin 2.7 g/dL (1.3-4.6); Glomerular Filtration Rate 99.3 mL/min (90-130); Glucose 126 mg/dL (65-115); Osmolality Calculated 282 mOsm/kg (285-295); Sodium 136 mmol/L (136-145); Total Bilirubin 0.3 mg/dL (0.15-1.2); Total Protein 6.9 g/dL (6.6-8.7)
== END 2024-01-04 23:59 | disposition home or self-care (01) ==
PROVIDERS: Nurse Practitioner Family; PCP Electrodiagnostic Medicine; Visit Provider Internal Medicine Medical Oncology
DX: D75.1 Secondary polycythemia (principal); Z79.899 Other long term (current) drug therapy; Z53.9 Procedure and treatment not carried out, unspecified reason
CPT/HCPCS: 36415; 80053; 85025; 99195; 99214

== ENCOUNTER 2024-01-27 14:15 | Oncology outpatient (recurring) (ONCR) | payer MEDICARE, BC, SELFPAY ==
[2024-01-27 14:53] LABS: Basophils # 0.1 10^3/uL (0.0-0.1); Basophils % 0.9 %; Eosinophils # 0.1 10^3/uL (0.0-0.8); Eosinophils % 1.3 %; Hematocrit 51.3 % (37-53); Lymphocytes # 2.5 10^3/uL (0.8-4.8); Lymphocytes % 31.2 %; Mean Corpuscular HGB Conc 32.7 g/dL (30-55); Mean Corpuscular Volume 79.5 fl (82-101); Mean Platelet Volume 8.7 fL (7.4-10.4); Monocytes # 0.6 10^3/uL (0.2-0.9); Monocytes % 7.6 %; Neutrophils # 4.61 10^3/uL (1.8-7.7); Neutrophils % 58.7 %; Nucleated Red Blood Cells % 0 %; Platelet Count 212 10^3/cmm (157-399); Red Blood Count 6.45 10^6/uL (3.85-5.65); Red Cell Distribution Width 13.6 % (12.1-15.1); White Blood Count 7.85 10^3/uL (3.29-11.43)
== END 2024-02-04 23:59 | disposition home or self-care (01) ==
LOC: ONCMED 14:16
PROVIDERS: Nurse Practitioner Family; PCP Electrodiagnostic Medicine; Visit Provider Internal Medicine Medical Oncology
DX: D75.1 Secondary polycythemia (principal)
CPT/HCPCS: 36415; 85025; 99195

== ENCOUNTER 2024-02-24 14:17 | Oncology outpatient (recurring) (ONCR) | payer MEDICARE, BC, SELFPAY ==
[2024-02-24 15:27] LABS: Basophils % 0.6 %; Eosinophils # 0.2 10^3/uL (0.0-0.8); Eosinophils % 2.2 %; Hematocrit 49.9 % (37-53); Mean Corpuscular HGB Conc 32.3 g/dL (30-55); Mean Corpuscular Hemoglobin 25.7 pg (27-33); Mean Corpuscular Volume 79.6 fl (82-101); Monocytes # 0.7 10^3/uL (0.2-0.9); Monocytes % 9.5 %; Neutrophils # 4.13 10^3/uL (1.8-7.7); Neutrophils % 59.3 %; Nucleated Red Blood Cells % 0 %; Platelet Count 225 10^3/cmm (157-399); Red Blood Count 6.27 10^6/uL (3.85-5.65); Red Cell Distribution Width 13.3 % (12.1-15.1); White Blood Count 6.96 10^3/uL (3.29-11.43)
[2024-02-24 16:00] VITALS: BP 138/78; PULSE 78; RESP 17; TEMP 36.6; O2SAT 98
== END 2024-03-05 23:59 | disposition home or self-care (01) ==
LOC: ONCMED 14:18
PROVIDERS: Nurse Practitioner Family; PCP Electrodiagnostic Medicine; Visit Provider Internal Medicine Medical Oncology
DX: D75.1 Secondary polycythemia (principal)
CPT/HCPCS: 85025; 99195

== ENCOUNTER 2024-03-23 13:59 | Oncology outpatient (recurring) (ONCR) | payer MEDICARE, BC, SELFPAY | END 2024-04-05 23:59 | disposition home or self-care (01) | PROVIDERS: PCP Electrodiagnostic Medicine; Visit Provider Internal Medicine | DX: D75.1 Secondary polycythemia (principal); Z53.9 Procedure and treatment not carried out, unspecified reason; Z79.899 Other long term (current) drug therapy | CPT/HCPCS: 99195; 99213 ==

== ENCOUNTER 2024-04-27 12:19 | Oncology outpatient (recurring) (ONCR) | payer MEDICARE, BC, SELFPAY ==
[2024-04-27 12:40] LABS: Basophils % 0.6 %; Eosinophils # 0.1 10^3/uL (0.0-0.8); Eosinophils % 1.2 %; Hematocrit 49.7 % (37-53); Lymphocytes # 2.1 10^3/uL (0.8-4.8); Mean Corpuscular HGB Conc 32.8 g/dL (30-55); Mean Corpuscular Hemoglobin 26.2 pg (27-33); Mean Platelet Volume 9.4 fL (7.4-10.4); Monocytes # 0.5 10^3/uL (0.2-0.9); Monocytes % 7.4 %; Neutrophils # 4.18 10^3/uL (1.8-7.7); Neutrophils % 60.5 %; Nucleated Red Blood Cells % 0 %; Platelet Count 227 10^3/cmm (157-399); Red Blood Count 6.21 10^6/uL (3.85-5.65); Red Cell Distribution Width 13.5 % (12.1-15.1)
[2024-04-27 13:01] LABS: Alanine Aminotransferase 45 U/L (0-41); Albumin Level 4.3 g/dL (3.5-5.2); Alkaline Phosphatase 122 U/L (40-130); Aspartate Amino Transferase 26 U/L (0-40); Blood Urea Nitrogen 13 mg/dL (6-20); Calcium 9.5 mg/dL (8.5-10.5); Carbon Dioxide 27 mmol/L (22-29); Chloride 102 mmol/L (98-107); Creatinine Clr Calc Pharmacy 110.1858; Globulin 2.7 g/dL (1.3-4.6); Glomerular Filtration Rate 99.3 mL/min (90-130); Glucose 144 mg/dL (65-115); Osmolality Calculated 291 mOsm/kg (285-295); Sodium 139 mmol/L (136-145); Total Bilirubin 0.3 mg/dL (0.15-1.2)
[2024-04-27 13:04] LABS: Anion Gap 14.4 (5-19); Lactate Dehydrogenase 168 U/L (135-225); Potassium 4.4 mmol/L (3.5-5.1)
[2024-04-27 14:50] VITALS: BP 118/71; PULSE 72; RESP 18; TEMP 36.1; O2SAT 99
== END 2024-05-06 23:59 | disposition home or self-care (01) ==
PROVIDERS: PCP Electrodiagnostic Medicine; Visit Provider Internal Medicine
DX: Z53.9 Procedure and treatment not carried out, unspecified reason; D75.1 Secondary polycythemia; Z96.82 Presence of neurostimulator; Z79.899 Other long term (current) drug therapy
CPT/HCPCS: 36591; 80053; 83615; 84550; 85025; 99195; 99213

== ENCOUNTER 2024-05-31 09:30 | Oncology outpatient (recurring) (ONCR) | payer MEDICARE, BC, SELFPAY ==
[2024-05-31 10:44] LABS: Basophils % 0.4 %; Eosinophils # 0.1 10^3/uL (0.0-0.8); Eosinophils % 1.1 %; Hematocrit 49.1 % (37-53); Lymphocytes # 2.1 10^3/uL (0.8-4.8); Lymphocytes % 28.8 %; Mean Corpuscular HGB Conc 33.6 g/dL (30-55); Mean Corpuscular Hemoglobin 26.7 pg (27-33); Mean Corpuscular Volume 79.3 fl (82-101); Mean Platelet Volume 9.2 fL (7.4-10.4); Monocytes # 0.5 10^3/uL (0.2-0.9); Monocytes % 6.4 %; Neutrophils # 4.55 10^3/uL (1.8-7.7); Neutrophils % 62.9 %; Nucleated Red Blood Cells % 0 %; Platelet Count 228 10^3/cmm (157-399); Red Blood Count 6.19 10^6/uL (3.85-5.65); Red Cell Distribution Width 14.1 % (12.1-15.1); White Blood Count 7.23 10^3/uL (3.29-11.43)
[2024-05-31 10:45] LABS: Reticulocyte % 2.1 % (0.5-2.0)
[2024-05-31 10:51] LABS: Erythrocyte Sedimentation Rate 8 mm/hr (0-10)
[2024-05-31 11:07] LABS: Alanine Aminotransferase 43 U/L (0-41); Albumin Level 4.3 g/dL (3.5-5.2); Alkaline Phosphatase 116 U/L (40-130); Anion Gap 14.4 (5-19); Aspartate Amino Transferase 23 U/L (0-40); Blood Urea Nitrogen 12 mg/dL (6-20); Calcium 9.3 mg/dL (8.5-10.5); Carbon Dioxide 24 mmol/L (22-29); Chloride 103 mmol/L (98-107); Ferritin 32 ng/mL (30-400); Globulin 2.6 g/dL (1.3-4.6); Glomerular Filtration Rate 86.4 mL/min (90-130); Glucose 130 mg/dL (65-115); Iron 65 ug/dL (59-158); Lactate Dehydrogenase 136 U/L (135-225); Osmolality Calculated 286 mOsm/kg (285-295); Potassium 4.4 mmol/L (3.5-5.1); Sodium 137 mmol/L (136-145); Total Bilirubin 0.4 mg/dL (0.15-1.2); Total Iron Binding Capacity 324 mcg/dl; Total Protein 6.9 g/dL (6.6-8.7); Unsaturated Iron Binding 259 ug/dL (112-347)
== END 2024-06-03 23:59 | disposition home or self-care (01) ==
LOC: ONCMED 09:30
PROVIDERS: PCP Electrodiagnostic Medicine; Visit Provider Internal Medicine
DX: D75.1 Secondary polycythemia (principal); G60.8 Other hereditary and idiopathic neuropathies; Z79.899 Other long term (current) drug therapy; Z96.82 Presence of neurostimulator
CPT/HCPCS: 36415; 80053; 82728; 83010; 83540; 83550; 83615; 85025; 85045; 85651; 86140; 99195; 99214

== ENCOUNTER 2024-06-22 10:15 | Oncology outpatient (recurring) (ONCR) | payer MEDICARE, BC, SELFPAY ==
[2024-06-22 11:20] LABS: Basophils # 0.1 10^3/uL (0.0-0.1); Basophils % 0.7 %; Eosinophils # 0.1 10^3/uL (0.0-0.8); Eosinophils % 1.1 %; Hematocrit 50.3 % (37-53); Lymphocytes # 1.7 10^3/uL (0.8-4.8); Lymphocytes % 23.3 %; Mean Corpuscular HGB Conc 33.2 g/dL (30-55); Mean Corpuscular Hemoglobin 27.2 pg (27-33); Mean Corpuscular Volume 81.8 fl (82-101); Mean Platelet Volume 9.2 fL (7.4-10.4); Monocytes # 0.4 10^3/uL (0.2-0.9); Monocytes % 5.6 %; Neutrophils # 5.02 10^3/uL (1.8-7.7); Neutrophils % 68.8 %; Nucleated Red Blood Cells % 0 %; Platelet Count 236 10^3/cmm (157-399); Red Blood Count 6.15 10^6/uL (3.85-5.65)
[2024-06-22 11:42] LABS: Alanine Aminotransferase 48 U/L (0-41); Albumin Level 4.5 g/dL (3.5-5.2); Alkaline Phosphatase 124 U/L (40-130); Anion Gap 16.2 (5-19); Aspartate Amino Transferase 26 U/L (0-40); Blood Urea Nitrogen 11 mg/dL (6-20); Calcium 9.7 mg/dL (8.5-10.5); Carbon Dioxide 28 mmol/L (22-29); Chloride 100 mmol/L (98-107); Globulin 2.7 g/dL (1.3-4.6); Glomerular Filtration Rate 76.5 mL/min (90-130); Glucose 153 mg/dL (65-115); Osmolality Calculated 292 mOsm/kg (285-295); Potassium 4.2 mmol/L (3.5-5.1); Sodium 140 mmol/L (136-145); Total Bilirubin 0.4 mg/dL (0.15-1.2); Total Protein 7.2 g/dL (6.6-8.7)
[2024-06-22 15:02] VITALS: BP 124/78; PULSE 82; RESP 18; TEMP 36.6; O2SAT 94
== END 2024-07-04 23:59 | disposition home or self-care (01) ==
LOC: ONCMED 10:15
PROVIDERS: PCP Electrodiagnostic Medicine; Visit Provider Internal Medicine
DX: D75.1 Secondary polycythemia (principal); Z96.82 Presence of neurostimulator; Z79.899 Other long term (current) drug therapy
CPT/HCPCS: 80053; 85025; 99195; 99213

== ENCOUNTER 2024-07-20 09:58 | Oncology outpatient (recurring) (ONCR) | payer MEDICARE, BC, SELFPAY ==
[2024-07-20 10:35] LABS: Basophils % 0.6 %; Eosinophils # 0.1 10^3/uL (0.0-0.8); Eosinophils % 0.9 %; Hematocrit 50.9 % (37-53); Mean Corpuscular HGB Conc 33.2 g/dL (30-55); Mean Corpuscular Hemoglobin 27.5 pg (27-33); Mean Corpuscular Volume 82.9 fl (82-101); Mean Platelet Volume 9.1 fL (7.4-10.4); Monocytes # 0.5 10^3/uL (0.2-0.9); Monocytes % 7.1 %; Neutrophils # 4.27 10^3/uL (1.8-7.7); Nucleated Red Blood Cells % 0 %; Platelet Count 228 10^3/cmm (157-399); Red Blood Count 6.14 10^6/uL (3.85-5.65); Red Cell Distribution Width 13.7 % (12.1-15.1); White Blood Count 6.89 10^3/uL (3.29-11.43)
[2024-07-20 10:38] LABS: Erythrocyte Sedimentation Rate 3 mm/hr (0-10)
[2024-07-20 11:01] LABS: Alanine Aminotransferase 55 U/L (0-41); Albumin Level 4.6 g/dL (3.5-5.2); Alkaline Phosphatase 111 U/L (40-130); Anion Gap 16.2 (5-19); Aspartate Amino Transferase 29 U/L (0-40); Blood Urea Nitrogen 14 mg/dL (6-20); Calcium 9.7 mg/dL (8.5-10.5); Carbon Dioxide 25 mmol/L (22-29); Chloride 102 mmol/L (98-107); Ferritin 44 ng/mL (30-400); Globulin 2.8 g/dL (1.3-4.6); Glomerular Filtration Rate 98.9 mL/min (90-130); Glucose 143 mg/dL (65-115); Iron 89 ug/dL (59-158); Lactate Dehydrogenase 162 U/L (135-225); Osmolality Calculated 291 mOsm/kg (285-295); Percent Saturation 27.9 % (20-50); Potassium 4.2 mmol/L (3.5-5.1); Sodium 139 mmol/L (136-145); Total Bilirubin 0.5 mg/dL (0.15-1.2); Total Iron Binding Capacity 318 mcg/dl; Total Protein 7.4 g/dL (6.6-8.7); Unsaturated Iron Binding 229 ug/dL (112-347); Uric Acid 4.8 mg/dL (3.4-7.0)
[2024-07-20 11:50] VITALS: BP 120/79; PULSE 63; RESP 16; TEMP 36.6; O2SAT 99
== END 2024-08-03 23:59 | disposition home or self-care (01) ==
PROVIDERS: PCP Electrodiagnostic Medicine; Visit Provider Internal Medicine
DX: D75.1 Secondary polycythemia (principal); G62.89 Other specified polyneuropathies; Z96.82 Presence of neurostimulator; Z79.899 Other long term (current) drug therapy
CPT/HCPCS: 36415; 80053; 82728; 83540; 83550; 83615; 84550; 85025; 85651; 86140; 99195; 99214

== ENCOUNTER 2024-08-17 09:41 | Oncology outpatient (recurring) (ONCR) | payer MEDICARE, BC, SELFPAY ==
[2024-08-17 10:24] LABS: Basophils # 0.1 10^3/uL (0.0-0.1); Basophils % 0.8 %; Eosinophils # 0.1 10^3/uL (0.0-0.8); Eosinophils % 1.1 %; Lymphocytes # 1.9 10^3/uL (0.8-4.8); Mean Corpuscular HGB Conc 33.1 g/dL (30-55); Mean Corpuscular Hemoglobin 27.2 pg (27-33); Mean Corpuscular Volume 82.1 fl (82-101); Mean Platelet Volume 9.2 fL (7.4-10.4); Monocytes # 0.5 10^3/uL (0.2-0.9); Monocytes % 7.5 %; Neutrophils # 4.04 10^3/uL (1.8-7.7); Neutrophils % 61.4 %; Nucleated Red Blood Cells % 0 %; Platelet Count 241 10^3/cmm (157-399); Red Blood Count 6.21 10^6/uL (3.85-5.65); Red Cell Distribution Width 13.2 % (12.1-15.1); White Blood Count 6.56 10^3/uL (3.29-11.43)
[2024-08-17 10:48] LABS: Alanine Aminotransferase 61 U/L (0-41); Albumin Level 4.4 g/dL (3.5-5.2); Alkaline Phosphatase 115 U/L (40-130); Aspartate Amino Transferase 36 U/L (0-40); Blood Urea Nitrogen 11 mg/dL (6-20); Calcium 9.9 mg/dL (8.5-10.5); Carbon Dioxide 26 mmol/L (22-29); Chloride 102 mmol/L (98-107); Glomerular Filtration Rate 86.4 mL/min (90-130); Glucose 145 mg/dL (65-115); Osmolality Calculated 294 mOsm/kg (285-295); Sodium 141 mmol/L (136-145); Total Bilirubin 0.4 mg/dL (0.15-1.2); Total Protein 7.4 g/dL (6.6-8.7)
[2024-08-17 11:01] LABS: Anion Gap 17.5 (5-19); Potassium 4.5 mmol/L (3.5-5.1)
[2024-08-17 11:15] VITALS: BP 124/85; PULSE 81
== END 2024-09-03 23:59 | disposition home or self-care (01) ==
PROVIDERS: Internal Medicine; PCP Electrodiagnostic Medicine; Visit Provider Internal Medicine Medical Oncology
DX: D75.1 Secondary polycythemia (principal); G47.30 Sleep apnea, unspecified; Z79.899 Other long term (current) drug therapy
CPT/HCPCS: 36415; 80053; 85025; 99195; 99214

== ENCOUNTER 2024-09-21 13:54 | Oncology outpatient (recurring) (ONCR) | payer MEDICARE, BC, SELFPAY ==
[2024-09-21 14:24] LABS: Basophils # 0.1 10^3/uL (0.0-0.1); Basophils % 0.9 %; Eosinophils # 0.1 10^3/uL (0.0-0.8); Eosinophils % 0.9 %; Hematocrit 50.3 % (37-53); Lymphocytes # 2.3 10^3/uL (0.8-4.8); Lymphocytes % 34.7 %; Mean Corpuscular HGB Conc 33.4 g/dL (30-55); Mean Corpuscular Hemoglobin 26.3 pg (27-33); Mean Corpuscular Volume 78.8 fl (82-101); Monocytes # 0.5 10^3/uL (0.2-0.9); Monocytes % 8.3 %; Neutrophils # 3.59 10^3/uL (1.8-7.7); Neutrophils % 54.9 %; Nucleated Red Blood Cells % 0 %; Platelet Count 246 10^3/cmm (157-399); Red Blood Count 6.38 10^6/uL (3.85-5.65); Red Cell Distribution Width 12.9 % (12.1-15.1); White Blood Count 6.54 10^3/uL (3.29-11.43)
== END 2024-10-03 23:59 | disposition home or self-care (01) ==
LOC: ONCMED 13:55
PROVIDERS: PCP Electrodiagnostic Medicine; Visit Provider Internal Medicine Medical Oncology
DX: D75.1 Secondary polycythemia (principal)
CPT/HCPCS: 36415; 85025

== ENCOUNTER 2024-10-19 14:00 | Oncology outpatient (recurring) (ONCR) | payer MEDICARE, BC, SELFPAY ==
[2024-10-04 15:48] LABS: Hematocrit 53.1 % (37-53); Hemoglobin 17.00 g/dL (11.27-16.99); Mean Corpuscular HGB Conc 32.0 g/dL (30-55); Mean Corpuscular Hemoglobin 26.0 pg (27-33); Mean Corpuscular Volume 81.1 fl (82-101); Nucleated Red Blood Cells % 0 %; Platelet Count 241 10^3/cmm (157-399); Red Blood Count 6.55 10^6/uL (3.85-5.65); White Blood Count 7.31 10^3/uL (3.29-11.43)
[2024-10-04 16:17] LABS: Alanine Aminotransferase 43 U/L (0-41); Albumin Level 4.4 g/dL (3.5-5.2); Alkaline Phosphatase 120 U/L (40-130); Anion Gap 16.9 (5-19); Aspartate Amino Transferase 23 U/L (0-40); Blood Urea Nitrogen 10 mg/dL (6-20); Calcium 9.2 mg/dL (8.5-10.5); Carbon Dioxide 24 mmol/L (22-29); Chloride 101 mmol/L (98-107); Globulin 2.7 g/dL (1.3-4.6); Glucose 143 mg/dL (65-115); Osmolality Calculated 288 mOsm/kg (285-295); Potassium 3.9 mmol/L (3.5-5.1); Sodium 138 mmol/L (136-145); Total Protein 7.1 g/dL (6.6-8.7)
[2024-10-19 14:27] LABS: Hematocrit 49.0 % (37-53); Hemoglobin 15.40 g/dL (11.27-16.99); Mean Corpuscular HGB Conc 31.4 g/dL (30-55); Mean Corpuscular Hemoglobin 25.7 pg (27-33); Mean Corpuscular Volume 81.8 fl (82-101); Nucleated Red Blood Cells % 0 %; Platelet Count 244 10^3/cmm (157-399); Red Blood Count 5.99 10^6/uL (3.85-5.65); White Blood Count 7.14 10^3/uL (3.29-11.43)
== END 2024-11-03 23:59 | disposition home or self-care (01) ==
PROVIDERS: Nurse Practitioner Family; PCP Electrodiagnostic Medicine; Visit Provider Internal Medicine Medical Oncology
DX: D75.1 Secondary polycythemia (principal)
CPT/HCPCS: 36415; 80053; 85025; 99195

== ENCOUNTER 2024-11-16 13:50 | Oncology outpatient (recurring) (ONCR) | payer MEDICARE, BC, SELFPAY ==
[2024-11-16 14:15] VITALS: BP 126/77; PULSE 75; RESP 17; TEMP 36.8; O2SAT 97
[2024-11-16 14:23] LABS: Hematocrit 48.5 % (37-53); Hemoglobin 15.80 g/dL (11.27-16.99); Mean Corpuscular HGB Conc 32.6 g/dL (30-55); Mean Corpuscular Hemoglobin 25.8 pg (27-33); Mean Corpuscular Volume 79.2 fl (82-101); Nucleated Red Blood Cells % 0 %; Platelet Count 242 10^3/cmm (157-399); Red Blood Count 6.12 10^6/uL (3.85-5.65); White Blood Count 6.47 10^3/uL (3.29-11.43)
[2024-11-16 15:04] VITALS: BP 106/77; PULSE 70; RESP 17; TEMP 36.9; O2SAT 97
== END 2024-12-04 23:59 | disposition home or self-care (01) ==
LOC: ONCMED 13:50
PROVIDERS: Internal Medicine Medical Oncology; PCP Electrodiagnostic Medicine; Visit Provider Internal Medicine
DX: D75.1 Secondary polycythemia (principal)
CPT/HCPCS: 36415; 85025; 99195

== ENCOUNTER 2024-12-21 13:38 | Oncology outpatient (recurring) (ONCR) | payer MEDICARE, BC, SELFPAY ==
[2024-12-21 14:02] LABS: Hematocrit 47.4 % (37-53); Hemoglobin 15.20 g/dL (11.27-16.99); Mean Corpuscular HGB Conc 32.1 g/dL (30-55); Mean Corpuscular Hemoglobin 25.4 pg (27-33); Mean Corpuscular Volume 79.1 fl (82-101); Nucleated Red Blood Cells % 0 %; Platelet Count 236 10^3/cmm (157-399); Red Blood Count 5.99 10^6/uL (3.85-5.65); White Blood Count 6.65 10^3/uL (3.29-11.43)
[2024-12-21 14:38] VITALS: BP 125/80; PULSE 73
== END 2025-01-03 23:59 | disposition home or self-care (01) ==
LOC: ONCMED 13:39
PROVIDERS: Internal Medicine Medical Oncology; PCP Electrodiagnostic Medicine; Visit Provider Internal Medicine
DX: D75.1 Secondary polycythemia (principal)
CPT/HCPCS: 36415; 85025; 99195

== ENCOUNTER 2025-01-18 13:54 | Oncology outpatient (recurring) (ONCR) | payer MEDICARE, BC, SELFPAY ==
[2025-01-18 14:28] LABS: Hematocrit 50.3 % (37-53); Hemoglobin 16.30 g/dL (11.27-16.99); Mean Corpuscular HGB Conc 32.4 g/dL (30-55); Mean Corpuscular Hemoglobin 25.6 pg (27-33); Mean Corpuscular Volume 79.0 fl (82-101); Nucleated Red Blood Cells % 0 %; Platelet Count 254 10^3/cmm (157-399); Red Blood Count 6.37 10^6/uL (3.85-5.65); White Blood Count 6.42 10^3/uL (3.29-11.43)
[2025-01-18 14:47] LABS: Alanine Aminotransferase 31 U/L (0-41); Albumin Level 4.5 g/dL (3.5-5.2); Alkaline Phosphatase 123 U/L (40-130); Aspartate Amino Transferase 24 U/L (0-40); Blood Urea Nitrogen 10 mg/dL (6-20); Calcium 9.5 mg/dL (8.5-10.5); Carbon Dioxide 25 mmol/L (22-29); Chloride 100 mmol/L (98-107); Globulin 2.7 g/dL (1.3-4.6); Glucose 108 mg/dL (65-115); Osmolality Calculated 286 mOsm/kg (285-295); Sodium 138 mmol/L (136-145); Total Protein 7.2 g/dL (6.6-8.7)
[2025-01-18 15:04] VITALS: BP 111/73; PULSE 71; RESP 16; TEMP 36.4; O2SAT 95
[2025-01-18 15:49] LABS: Anion Gap 17.1 (5-19); Potassium 4.1 mmol/L (3.5-5.1)
== END 2025-02-03 23:59 | disposition home or self-care (01) ==
LOC: ONCMED 13:55
PROVIDERS: Internal Medicine Medical Oncology; PCP Electrodiagnostic Medicine; Visit Provider Internal Medicine
DX: D75.1 Secondary polycythemia (principal)
CPT/HCPCS: 36415; 80053; 84403; 85025; 99195; G0103

== ENCOUNTER 2025-02-15 13:41 | Oncology outpatient (recurring) (ONCR) | payer MEDICARE, BC, SELFPAY ==
[2025-02-15 14:24] LABS: Hematocrit 46.8 % (37-53); Hemoglobin 15.30 g/dL (11.27-16.99); Mean Corpuscular HGB Conc 32.7 g/dL (30-55); Mean Corpuscular Hemoglobin 26.0 pg (27-33); Mean Corpuscular Volume 79.6 fl (82-101); Nucleated Red Blood Cells % 0 %; Platelet Count 237 10^3/cmm (157-399); Red Blood Count 5.88 10^6/uL (3.85-5.65); White Blood Count 6.93 10^3/uL (3.29-11.43)
[2025-02-15 14:58] VITALS: BP 118/75
== END 2025-03-05 23:59 | disposition home or self-care (01) ==
LOC: ONCMED 13:41
PROVIDERS: Internal Medicine Medical Oncology; PCP Electrodiagnostic Medicine; Visit Provider Internal Medicine
DX: D75.1 Secondary polycythemia (principal)
CPT/HCPCS: 85025; 99195

== ENCOUNTER 2025-03-22 13:55 | Oncology outpatient (recurring) (ONCR) | payer MEDICARE, BC, SELFPAY ==
[2025-03-22 14:25] LABS: Hematocrit 48.0 % (37-53); Hemoglobin 15.60 g/dL (11.27-16.99); Mean Corpuscular HGB Conc 32.5 g/dL (30-55); Mean Corpuscular Hemoglobin 25.9 pg (27-33); Mean Corpuscular Volume 79.7 fl (82-101); Nucleated Red Blood Cells % 0 %; Platelet Count 235 10^3/cmm (157-399); Red Blood Count 6.02 10^6/uL (3.85-5.65); White Blood Count 6.66 10^3/uL (3.29-11.43)
[2025-03-22 14:50] VITALS: BP 109/73; PULSE 74; RESP 17; TEMP 36.2; O2SAT 98
== END 2025-04-05 23:59 | disposition home or self-care (01) ==
LOC: ONCMED 13:56
PROVIDERS: Internal Medicine Medical Oncology; PCP Electrodiagnostic Medicine; Visit Provider Internal Medicine
DX: D75.1 Secondary polycythemia (principal)
CPT/HCPCS: 36415; 85025; 99195